=== PATIENT | female | born 1955 | race Caucasian/White ===

== ENCOUNTER → 2017-06-08 10:58 | Outpatient (CLI) | payer BC, SELFPAY ==
[2017-06-08 11:31] LABS: Hematocrit 42.5 % (37.0-47.0); Hemoglobin 13.4 g/dL (12.2-16.2)
== END ==
PROVIDERS: PCP Surgery; Visit Provider Surgery
DX: Z01.812 Encounter for preprocedural laboratory examination; Z12.11 Encounter for screening for malignant neoplasm of colon
CPT/HCPCS: 36415; 85014; 85018

== ENCOUNTER 2017-06-10 09:59 | Day surgery (SDC) | payer BC, SELFPAY ==
[2017-06-09 14:15] VITALS: BMI 31.6
[2017-06-10 10:28] VITALS: BP 124/64; PULSE 76; RESP 20; TEMP 36.5; O2SAT 95; BMI 31.6
[2017-06-10 10:57] LABS: POC Glucose,Bedside 110 mg/dL
--- NOTE | 2017-06-10 10:58 | HMH.ANESCL ---
[facility] [place] Anesthesia Checklist - Structural Data Admitted From: Home Planned Operative Procedure/s: colonoscopy Consent for Planned Operative Procedure(s) Verified: Yes Verified Documents: History and Physical - NPO Status Verified Time NPO: 06:00 - Additional verifications Anesthesia Reactions: No - Airway Assessment C-Spine Mobility Assessed: Yes TMJ Mobility Assessed: Yes Dentition: Poor Dentition - Neurological Assessment Level of Consciousness: Awake, Alert - Anesthesia Plan Anesthesia Risk discussed: Yes Anesthesia Plan: Verified ASA Class: III Anesthesia Type: MAC [facility] [place] Anesthesia HX I have reviewed the patient's past medical history: Yes Medical History: Reports:: Coronary Artery Disease, Diabetes Mellitus Type 2, Myocardial Infarction Denies:: Diabetes Mellitus Type 1, Seizures Other Surgeries: Yes: Hysterectomy-Total. No: Pacemaker
[2017-06-10 11:22] VITALS: O2SAT 96
--- NOTE | 2017-06-10 11:45 | SUR.OPER ---
ERBE CAUTERY USED; CAUTERY 00, COAG 25. GROUNDED TO RIGHT THIGH. SKIN INTACT UPON REMOVAL.
[2017-06-10 12:10] VITALS: BP 106/66; PULSE 66; RESP 16; TEMP 36.8; O2SAT 92
--- NOTE | 2017-06-10 12:12 | HMH.SCOPE ---
- Procedure: Date/Time of Procedure:: 06/10/17 12:12 Procedure Performed:: Colonoscopy with polypectomy Indications:: This is a 62-year-old female with intermittent bright red blood per rectum and constipation. She attributes her bleeding to hemorrhoids. Performing Provider:: Naveen Carlton MD Referring Provider:: Dr. Delacruz Sedation:: Monitored anesthesia care Procedure:: After informed consent was obtained, the patient was taken to the endoscopy suite. Monitored anesthesia care ensued after she was transferred to the left lateral decubitus position. Digital rectal exam revealed moderate hemorrhoidal cushions with no thrombosis or active bleeding. The colonoscope was placed in position. The entire colon was evaluated. Bowel preparation was poor with large volume irrigation and suctioning used to somewhat improve visualization. A complex lobulated polyp at [address] was excised by way snare polypectomy and cold biopsy forceps. This excision was accomplished at the time of colonoscope removal. A complex lobulated polyp of the transverse colon and an adjacent polyp were excised by way of snare and biopsy forceps. A 10 mm splenic flexure polyp was excised by way of cold biopsy and snare. No additional mucosal lesions are seen; however, visualization was somewhat limited secondary to poor bowel preparation. The colonoscope was carefully removed and the patient was transferred to recovery. Findings:: Poor bowel preparation Polyp (see specimens) Hemorrhoidal cushions with no thrombosis or active bleeding Specimens: Complex polyp at 40 cm Complex lobulated transverse colon polyp and adjacent polyp 7 mm splenic flexure polyp Impressions:: See findings Recommendations:: Repeat colonoscopy with extended bowel preparation in 1-2 years secondary to size/nature of polyps and poor bowel preparation. Complications:: No immediate Estimated blood obtained (mL): 1
[2017-06-10 12:20] VITALS: BP 104/67; PULSE 64; RESP 18; O2SAT 96
[2017-06-10 12:30] VITALS: BP 99/65; PULSE 74; RESP 18; O2SAT 93
[2017-06-10 12:40] VITALS: BP 103/68; PULSE 62; RESP 16; O2SAT 95
== END 2017-06-10 12:40 | disposition home or self-care (01) ==
LOC: OUTP 10:02
PROVIDERS: PCP Emergency Medicine; Visit Provider Surgery
PROC: 0DJD8ZZ Inspection of Lower Intestinal Tract, Via Natural or Artificial Opening Endoscopic (ICD-10-PCS; CPT 45385; principal; 2017-06-10 10:30)
DX: K62.5 Hemorrhage of anus and rectum (principal); K59.00 Constipation, unspecified; K63.5 Polyp of colon; E11.8 Type 2 diabetes mellitus with unspecified complications
CPT/HCPCS: 45385; 45380; 82962

== ENCOUNTER 2017-06-11 12:59 | Day surgery (SDC) | payer BC, SELFPAY ==
[2017-06-11 13:36] VITALS: BP 135/75; BP 135/77; PULSE 68; PULSE 72; RESP 18; RESP 20
[2017-06-11 13:44] VITALS: BP 112/60; PULSE 73; RESP 20; TEMP 36.4; O2SAT 93
[2017-06-11 13:51] LABS: POC Glucose,Bedside 279 mg/dL
--- NOTE | 2017-06-11 13:58 | HMH.PMPROC ---
- Procedure Date: 06/11/17 Time: 13:58 Anesthesiologist:: Austyn Garcia MD Complications:: None Pre-procedure Diagnosis:: Lumbar spondylosis, lumbar facet arthropathy Post-procedure Diagnosis:: Same Indications for Procedure:: This patient is a pleasant 62-year-old white female we are treating in our pain clinic for chronic low back pain secondary to lumbar spondylosis. Patient has had radiofrequency ablation of L3-L4, L4-L5, L5-S1 bilaterally back in August. Patient has done well with no pain since this procedure. Same pain has now started to return. She states standing for long periods of time aggravates her pain. Wishes to move forward with another radiofrequency ablation. She is now on blood thinners secondary to a [place]. We have gotten permission for her to come off of her blood thinners for this procedure from her community health advisor. We were only approved for radiofrequency ablation of 2 levels so we will do RFA of L4-5 and L5-S1 bilaterally today. Procedure Details:: The risks and benefits of this procedure were explained to the patient. Informed consent was obtained. Patient was taken to the procedure room and used in a prone position. Patient's back was cleaned and prepped with a chlorhexidine solution. The skin and subcutaneous tissues were anesthetized using lidocaine 1%. I placed 20-gauge RF needles into the facet joint/medial branches of L4-L5 and L5-S1 bilaterally. We underwent sensory stimulation. There is good sensory stimulation at 1 V. We then underwent motor stimulation. There is no motor stimulation at 2 V. After anesthetizing each level with lidocaine and Depo-Medrol up to 80 g for all 4 levels, we burned each level of L4-L5 and L5-S1 bilaterally for 60 seconds at 80?C. We burned both levels and both sides a total of 3 times, each 1 for 60 seconds at 80?C. The patient tolerated the procedure well with no complications. Plan and Disposition:: The patient tolerated the procedure well. We will follow up with her in 2 weeks to evaluate her symptoms.
--- NOTE | 2017-06-11 14:04 | P.PCN_ITS ---
- Procedure Date: 06/11/17 Time: 13:58 Anesthesiologist:: Austyn Garcia MD Complications:: None Pre-procedure Diagnosis:: Lumbar spondylosis, lumbar facet arthropathy Post-procedure Diagnosis:: Same Indications for Procedure:: This patient is a pleasant 62-year-old white female we are treating in our pain clinic for chronic low back pain secondary to lumbar spondylosis. Patient has had radiofrequency ablation of L3-L4, L4-L5, L5-S1 bilaterally back in August. Patient has done well with no pain since this procedure. Same pain has now started to return. She states standing for long periods of time aggravates her pain. Wishes to move forward with another radiofrequency ablation. She is now on blood thinners secondary to a [place]. 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 We were only approved for radiofrequency ablation of 2 levels so we will do RFA of L4-5 and L5-S1 bilaterally today. Procedure Details:: The risks and benefits of this procedure were explained to the patient. Informed consent was obtained. Patient was taken to the procedure room and used in a prone position. Patient's back was cleaned and prepped with a chlorhexidine solution. The skin and subcutaneous tissues were anesthetized using lidocaine 1%. I placed 20-gauge RF needles into the facet joint/medial branches of L4-L5 and L5-S1 bilaterally. We underwent sensory stimulation. There is good sensory stimulation at 1 V. We then underwent motor stimulation. There is no motor stimulation at 2 V. After anesthetizing each level with lidocaine and Depo-Medrol up to 80 g for all 4 levels, we burned each level of L4-L5 and L5-S1 bilaterally for 60 seconds at 80?C. We burned both levels and both sides a total of 3 times, each 1 for 60 seconds at 80?C. The patient tolerated the procedure well with no complications. Plan and Disposition:: The patient tolerated the procedure well. We will follow up with her in 2 weeks to evaluate her symptoms.
[2017-06-11 14:42] VITALS: BP 111/48; PULSE 70; RESP 18; O2SAT 93
== END 2017-06-11 14:44 | disposition home or self-care (01) ==
LOC: SC.PAINP 13:00
PROVIDERS: PCP Emergency Medicine; Visit Provider Anesthesiology
DX: M47.896 Other spondylosis, lumbar region (principal); M12.88 Other specific arthropathies, not elsewhere classified, other specified site
CPT/HCPCS: 64635; 64636; 82962; J1030

== ENCOUNTER → 2017-07-05 13:45 | Outpatient (POV) | payer BC, SELFPAY ==
[2017-07-05 13:54] VITALS: BP 125/77; PULSE 67; RESP 18; BMI 33.3
--- NOTE | 2017-07-05 14:01 | HMH.PAINSOAP ---
[facility] Pain Management SOAP Note Subjective:: This patient is a pleasant 62-year-old white female who we are treating for low back pain with degenerative disc disease of lumbar spine and lumbar spondylosis. Patient is status post radiofrequency ablation to the facet joints of L3-L4, L4-L5 and L5-S1 bilaterally. She is doing very well with no pain after this procedure. She has increased activity and no complaints at this time. Objective:: Alert and oriented ?3 in no acute distress. Patient does have a normal gait. Motor strength of the lower extremities is 5/5. There is no gross sensory deficit. Assessment:: Degenerative disc disease of lumbar spine with lumbar spondylosis and facet arthropathy. Plan:: I am very pleased with her progress. We will follow-up with her in 3 months to reevaluate her symptoms.
== END ==
PROVIDERS: PCP Emergency Medicine; Visit Provider Anesthesiology
DX: M47.9 Spondylosis, unspecified (principal)
CPT/HCPCS: 99212

== ENCOUNTER → 2017-08-18 15:12 | Outpatient (CLI) | payer BC, SELFPAY ==
[2017-08-18 15:43] LABS: Basophils % 0.2 % (0.1-2.0); Eosinophils # 0.2 K/mm3 (0.0-0.4); Eosinophils % 2.8 % (0.1-12.0); Hemoglobin 14.5 g/dL (12.2-16.2); Lymphocytes # 1.7 K/mm3 (0.7-4.5); Lymphocytes % 23.6 K/mm3 (10-50); Mean Corpuscular HGB Conc 31.6 g/dL (31.8-35.4); Mean Corpuscular Hemoglobin 31.5 pg (27.0-31.2); Mean Corpuscular Volume 99.9 fl (81-99); Mean Platelet Volume 7.4 fl (7.4-10.4); Monocytes # 0.2 K/mm3 (0.1-1.0); Monocytes % 3.2 % (1.7-9.3); Neutrophils # 5.1 K/mm3 (1.8-7.8); Neutrophils % 70.1 % (37.0-80.0); Platelet Count 249 K/mm3 (142-424); Red Blood Count 4.61 M/mm3 (4.20-5.40); Red Cell Distribution Width 15.3 % (11.5-17.5); White Blood Count 7.3 K/mm3 (4.8-10.8)
[2017-08-19 00:02] LABS: Anion Gap 12.5 mEq/L (5-15); Blood Urea Nitrogen 18 mg/dL (7-18); Carbon Dioxide 35 mmol/L (21.0-32.0); Chloride 95 mmol/L (98-107); Creatinine,Serum 0.92 mg/dL (0.55-1.02); Estimated Glomerular Filt Rate 62 ml/min (>60); GFR (African American) 75 ML/MIN (>60); Potassium 4.5 mmoL/L (3.5-5.1); Sodium 138 mmol/L (136-145)
[2017-08-19 00:03] LABS: Glucose 415 mg/dL (74-106)
== END ==
PROVIDERS: Visit Provider Orthopaedic Surgery
DX: G56.01 Carpal tunnel syndrome, right upper limb (principal); Z01.818 Encounter for other preprocedural examination
CPT/HCPCS: 36415; 80048; 85025

== ENCOUNTER 2017-08-25 09:08 | Day surgery (SDC) | payer BC, SELFPAY ==
[2017-08-24 10:34] VITALS: BMI 33.3
[2017-08-25 09:34] VITALS: BP 106/57; PULSE 64; RESP 18; TEMP 36.6; O2SAT 95
[2017-08-25 09:54] LABS: POC Glucose,Bedside 348 mg/dL (70-110)
--- NOTE | 2017-08-25 10:00 | HMH.ANESCL ---
[facility] Anesthesia Checklist - Patient Identification Patient Identification: Arm Band, Verbal (Name & ) - Structural Data Admitted From: Home Planned Operative Procedure/s: right CTR Consent for Planned Operative Procedure(s) Verified: Yes Verified Documents: Surgical Consent - NPO Status Verified Time NPO: 00:00 - Chart Verification Results Verified: CBC, BMP - Additional verifications Patient : No Anesthesia Reactions: No Hx Blood Transfusions: No Blood Transfusion Reaction: No Cephalosporin Allergy: No Previous Colonoscopy: No - Cardiovascular Assessment Heart Sounds: S1 & S2 Pulse Strength: Baseline Pulse Rhythm: Regular Peripheral Edema: No - Airway Assessment C-Spine Mobility Assessed: Yes TMJ Mobility Assessed: Yes Dentition: Good Dentition - Neurological Assessment Level of Consciousness: Awake, Alert, Appropriate - Anesthesia Plan Anesthesia Risk discussed: Yes Anesthesia Plan: Verified ASA Class: III Anesthesia Type: MAC [facility] Anesthesia HX Medical History: Reports:: Coronary Artery Disease, Diabetes Mellitus Type 2, Hyperlipidemia, Myocardial Infarction Denies:: Cancer, Diabetes Mellitus Type 1, Internal Pacemaker, MRSA, Seizures Other Medical History: Reports: Arthritis, Hormone Therapy, Hypothyroidism, Sinus Problems. Denies: Blood Transfusion Reaction Laterality Cases: Left: Carpal Tunnel Release, Bilateral: Tonsillectomy Other Surgeries: Yes: Appendectomy, Cardiac Catheterization, Colonoscopy, Coronary Stent, Hysterectomy-Total. No: Pacemaker Amputation: No Fractures: No *Family Hx:: Diabetes, Heart Attack, Stroke
[2017-08-25 11:55] VITALS: BP 97/64; PULSE 69; RESP 18; TEMP 36.5; O2SAT 96
[2017-08-25 12:05] VITALS: BP 109/66; PULSE 66; RESP 18; O2SAT 93
[2017-08-25 12:20] VITALS: BP 101/65; PULSE 66; RESP 18; O2SAT 93
[2017-08-25 12:35] VITALS: BP 103/68; PULSE 69; RESP 18; O2SAT 96
[2017-08-25 12:45] VITALS: BP 105/63; PULSE 70; RESP 18; TEMP 36.6; O2SAT 96
--- NOTE | 2017-08-25 13:10 | HMH.OPNOTE ---
Date of procedure: 08/25/17 Pre-op Diagnosis:: Right carpal tunnel syndrome Post-op Diagnosis:: Same Procedure performed:: Right carpal tunnel release Surgeon:: Catracho Estrada MD ADMINISTRATION PHYSICIAN:: Irena Harman Anesthesia: regional Estimated blood loss (mL): 2 Operative findings:: Intraoperative findings showed the median nerve to be dusky and hyperemic. There was a slight hourglass appearance secondary to pressure of the transverse carpal ligament. Prominent synovitis was present. No evidence of lesions such as ganglion or other space-occupying lesions Operative note:: The patient was taken to the operating room and the above anesthetic administered. The right arm was prepped and draped in the usual sterile fashion. After exsanguination, the tourniquet was inflated to 250 torr and a [place] block anesthetic administered. Please see nurses record for total tourniquet time. Villalpando's landmarks were utilized and an incision made parallel to the thenar crease with a 15 blade. Blunt tissue dissection through the subcutaneous tissue down to the palmar fascia was performed. The palmar fascia was incised with a 69 [place] blade to reveal the transverse carpal ligament. Some fibers the palmaris brevis were swept aside to adequate expose the transverse carpal ligament and the transverse carpal ligament was then incised with a 69 [place] blade just enough to expose the median nerve. We then protected the median nerve with a [place] elevator and extended the incision on the ulnar aspect of the nerve using the [place] blade. We then completed the incision proximally using a pair of tenotomy scissors ensuring that the transverse carpal ligament was NOT contiguous with the antebrachial fascia. A complete release proximally was documented by easily obtained side to side movement of the proximal carpal tunnel segments. Attention was then turned distally. Similarly, we incised the distal aspect of the transverse carpal ligament using the tenotomy scissors. Fat demarcating the end of the carpal tunnel was identified and we ensured that the motor branch was not endangered by any anatomic variation. We also then ensured that we had free side to side movement of the entire transverse carpal tunnel ligament segments. We then inspected the nerve. Slight hyperemic changes and slight indentation from pressure of the transverse carpal ligament was identified. There was duskiness an area of hyperemia for several millimeters as well. There were no space-occupying lesions within the transverse carpal canal. We then irrigated the incision with a solution of Ancef, 1 g, and closed with a running 4-0 nylon suture. Dressings were applied the tourniquet deflated the patient transported to the recovery room in satisfactory condition. Condition: stable Disposition: PACU Complications:: none
== END 2017-08-25 12:45 | disposition home or self-care (01) ==
LOC: OR 09:09
PROVIDERS: PCP Emergency Medicine; Visit Provider Orthopaedic Surgery
PROC: (CPT 64721; principal; 2017-08-25 11:00)
DX: G56.01 Carpal tunnel syndrome, right upper limb (principal)
CPT/HCPCS: 64721; 82962; 96372; 96374

== ENCOUNTER → 2017-09-20 13:55 | Outpatient (POV) | payer BC, SELFPAY ==
[2017-09-20 14:08] VITALS: BP 96/38; PULSE 64; BMI 22.6
--- NOTE | 2017-09-20 14:22 | P.CONS_ITS ---
[facility] Pain Management SOAP Note Subjective:: Patient is a very pleasant 62-year-old white female who presents today for follow-up. Patient has undergone radiofrequency ablation of L3-L4 L4-L5 L5-S1 bilaterally. She is doing extremely well with no pain. Patient rates her pain a 0 out of 10 today. She is managed on Lyrica 150 mg 1 p.o. twice daily. Patient's MAE [id number] reviewed and appropriate. Patient states she has been doing so well and been more functional. Patient will follow up with us every 6 months. ROS General: no recent weight change, no fever, no sleep disturbances Respiratory: no cough, no shortness of air, no recurring pulmonary infections Cardiovascular/Peripheral Vascular: No chest pain, No palpitations, no edema, no shortness of breath. Gastrointestinal: no incontinence, normal bowel movements reported Genitourinary: no incontinence Musculoskeletal: Back pain Psychiatric: normal mood/ affect Neurological: [denies weakness in extremities], [denies balance issues] Objective:: Physical Exam General: Alert and oriented x3, no acute distress, pleasant and cooperative, [ on room air] Lungs: Resps E/U, Symmetrical chest expansion, Eyes: PERRL Musculoskeletal: Flexion and extension of lumbar spine somewhat guarded secondary to pain, deep tendon reflexes normal, strength in upper and lower extremities [5/5], slightly antalgic gait noted Neurological: speech clear, locomotive inspector equal, no gross sensory deficits Assessment:: Degenerative disc disease of the lumbar spine with lumbar spondylosis and facet arthropathy Plan:: We will follow-up with this patient in 6 months and reevaluate her symptoms at that time. We will call in 3 months with the Lyrica 150 mg 1 p.o. twice daily. Patient can call for refills after this. Patient has been instructed to call the office in the meantime if she needs anything. Patient's Mae reviewed and appropriate. Dr. Garcia is reviewed this chart and agrees with this plan of care. This note was dictated using voice recognition software and may contain errors or omissions
== END ==
PROVIDERS: PCP Emergency Medicine; Visit Provider Clinical Nurse Specialist Family Health
DX: M47.816 Spondylosis without myelopathy or radiculopathy, lumbar region (principal)
CPT/HCPCS: 99212

== ENCOUNTER → 2017-10-12 15:25 | Outpatient (REF) | payer BC, SELFPAY ==
[2017-10-12 18:21] LABS: Basophils % 0.2 % (0.1-2.0); Eosinophils # 0.2 K/mm3 (0.0-0.4); Eosinophils % 3.1 % (0.1-12.0); Hematocrit 39.3 % (37.0-47.0); Hemoglobin 12.9 g/dL (12.2-16.2); Lymphocytes # 1.9 K/mm3 (0.7-4.5); Lymphocytes % 25.4 K/mm3 (10-50); Mean Corpuscular HGB Conc 32.7 g/dL (31.8-35.4); Mean Corpuscular Hemoglobin 32.3 pg (27.0-31.2); Mean Corpuscular Volume 98.7 fl (81-99); Mean Platelet Volume 7.9 fl (7.4-10.4); Monocytes # 0.3 K/mm3 (0.1-1.0); Monocytes % 4.6 % (1.7-9.3); Neutrophils % 66.7 % (37.0-80.0); Platelet Count 234 K/mm3 (142-424); Red Blood Count 3.98 M/mm3 (4.20-5.40); Red Cell Distribution Width 14.2 % (11.5-17.5); White Blood Count 7.6 K/mm3 (4.8-10.8)
[2017-10-12 19:25] LABS: Hemoglobin A1C 11.4 % (0.0-7.0)
[2017-10-12 20:23] LABS: Alanine Aminotransferase 27 U/L (12-78); Albumin Level 3.3 gm/dL (3.4-5.0); Albumin/Globulin Ratio 0.9 (1.1-1.8); Alkaline Phosphatase 81 U/L (46-116); Anion Gap 12.5 mEq/L (5-15); Aspartate Amino Transferase 25 U/L (15-37); Bilirubin,Total 0.3 mg/dL (0.2-1.0); Blood Urea Nitrogen 12 mg/dL (7-18); Calcium 8.9 mg/dL (8.5-10.1); Carbon Dioxide 30 mmol/L (21.0-32.0); Chloride 106 mmol/L (98-107); Chol/HDL Ratio 3.4 (1-3.5); Cholesterol 139 mg/dL (140-200); Creatinine,Serum 0.77 mg/dL (0.55-1.02); Estimated Glomerular Filt Rate 76 ml/min (>60); Free T4 (Free Thyroxine) 1.14 ng/dl (0.76-1.46); GFR (African American) 92 ML/MIN (>60); Globulin 3.5 gm/dl (1.3-3.2); Glucose 315 mg/dL (74-106); HDL Cholesterol 41 mg/dL (29-89); LDL Cholesterol 46 mg/dL (0-130); Potassium 4.5 mmoL/L (3.5-5.1); Sodium 144 mmol/L (136-145); Thyroid Stimulating Hormone 2.79 uIU/ml (0.358-3.740); Total Protein,Serum 6.8 gm/dL (6.4-8.2); Triglycerides 261 mg/dL (30-200); VLDL Cholesterol 52 mg/dL (0-40)
[2017-10-14 06:22] LABS: Vitamin D 25 Hydroxy 19.8 ng/mL (30.0-100.0)
== END ==
LOC: LAB 15:25
PROVIDERS: Visit Provider Emergency Medicine
DX: E11.9 Type 2 diabetes mellitus without complications (principal)
CPT/HCPCS: 80053; 80061; 82652; 83036; 84439; 84443; 85025

== ENCOUNTER → 2017-10-27 10:06 | Outpatient (CLI) | payer BC, SELFPAY ==
--- NOTE | 2017-10-27 10:08 | XR_ITS ---
XR shoulder RT min 2V HISTORY: ITS.REASON: Right shoulder pain ORDERING PHYSICIAN: Catracho Estrada MD PATIENT AGE: 62 years Comparison: None FINDINGS: There are mild osteoarthritic changes of the glenohumeral joint and acromioclavicular joint.. There is subacromial stenosis. Calcification is noted superior to the humeral head consistent with calcific tendinitis. No fracture or dislocation. No lytic or blastic change. 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
== END ==
PROVIDERS: PCP Emergency Medicine; Visit Provider Orthopaedic Surgery
DX: M25.511 Pain in right shoulder (principal)
CPT/HCPCS: 73030

== ENCOUNTER 2017-12-07 13:00 | Outpatient (RCR) | payer BC, SELFPAY ==
--- NOTE | 2017-10-28 15:47 | HMH.OTOPEV ---
OT Inpatient Evaluation Rehab OT Outpatient Eval Start: 10/28/17 15:36 Freq: Status: Active Protocol: Document 10/28/17 15:36 RMSRIHALNell (Rec: 10/28/17 15:47 [id number] Electronically Signed By Boom Beth OT 10/28/17 15:36 Outpatient Therapy Subjective History Subjective History Pt is a 62 year old female who reports to therapy for initial evaluation to right shoulder. Pt reports her shoulder began hurting her in July, and has continued. Pt does not recall a specific injury causing her pain. Pt has had an injection in the shoulder around August 22. She explained the shot helped for a while, but her pain is slowly beginning again. Pt does demonstrate with slight decreased AROM and strength at right shoulder. 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 Pt will continue to be seen twice a week to address these deficits. Chief Complaint Pain Stiff Symptom Type Ache Throb Sharp Stabbing Shooting Symptoms Relieved By Nothing Symptoms Aggravated By Physical Activity Lifting Prior Functional Limitations None Current Functional Limitations Reaching Lifting Housework Dressing Desk Work/Reading Driving Sleeping Recreation Activity Symptom Description Intermittent Activity Dependent Level of pain today (0-10) 2 Pain scale - at its best (0-10) 0 Pain scale - at its worst (0-10) 10 Shoulder/Elbow Eval Shoulder Objective Measurements Shoulder ROM Right Shoulder Abduction Active Range of 130 degrees Motion (degrees) Shoulder Flexion Active Range of Motion 118 degrees (degrees) Query
== END 2017-12-07 13:01 | disposition home or self-care (01) ==
LOC: OT 13:00
PROVIDERS: PCP Emergency Medicine; Visit Provider Orthopaedic Surgery
DX: M25.511 Pain in right shoulder (principal); M75.31 Calcific tendinitis of right shoulder
CPT/HCPCS: 97014; 97033; 97110; 97166; G0283

== ENCOUNTER → 2017-12-24 12:49 | Outpatient (CLI) | payer BC, SELFPAY ==
--- NOTE | 2017-12-24 12:51 | MR_ITS ---
MR shoulder RT wo con Ordering Physician: Catracho Estrada MD Patient Age: 62 years: Female HISTORY: ITS.REASON: Rotator cuff dysfunction MRI of the right shoulder. Right shoulder pain since August limited range of motion no known injury. TECHNIQUE: Multiplanar multisequence imaging on 1.5 T MR. COMPARISON :Plain films right shoulder 10/27/2017 FINDINGS Infraspinatus tendon: Small rotator cuff tear is seen at the infraspinatus insertion. Increased signal anterior most evident at the undersurface and interstitial portion of this tendon with a small full-thickness component. No significant tendon retraction. There is some associated tendinopathy throughout the infraspinatus tendon. Small amount of fluid at subdeltoid subacromial bursa associated.. Also note insertion erosions at the posterior humeral head at infraspinatus insertion. Supraspinatus tendon: appears to remain intact. With suggestion mild tendinopathy most notable at its posterior and anterior margin.. No significant supraspinatus tear no retraction evident Subscapularis tendon is intact. Unremarkable. The biceps tendon appears intact. It is normal caliber throughout with only some upper normal signal disappeared bicipital groove which likely is magic angle artifact doubt tendinopathy. There seems to be some field distortion of possible micrometal artifact anterior to the supraspinatus tendon and anterior interval. [place] been a previous procedure or injection of the shoulder Glenohumeral joint. Osseous glenoid intact. Posterior labrum are intact. Anterior labrum on most likely intact although could be slightly blunted and possibly mildly slightly degenerated.. AC joint. Mild arthropathy. . The acromion demonstrates slight downward sloping on the coronal views with the subacromial space measuring 5.5-6 mm just beneath the tip of acromion. Suggesting mild subacromial stenosis at this point.. IMPRESSION 1. Rotator cuff tear involving infraspinatus insertion. This is a relatively small tear mainly involving the undersurface & interstitial portion of the infraspinatus tendon with only a small full-thickness component. Infraspinatus tendinopathy about involved area Scant associated fluid at subdeltoid subacromial bursa 2. Mild Supraspinatus tendinopathy 3. Other minor comments in text
== END ==
PROVIDERS: PCP Emergency Medicine; Visit Provider Orthopaedic Surgery
DX: M67.911 Unspecified disorder of synovium and tendon, right shoulder (principal); M65.20 Calcific tendinitis, unspecified site
CPT/HCPCS: 73221

== ENCOUNTER → 2018-01-31 13:28 | Outpatient (CLI) | payer BC, SELFPAY ==
--- NOTE | 2018-01-31 13:30 | US_ITS ---
US Arterial Ankle Brachial Ind History: Claudication, leg pain, diabetes ITS.REASON: skin changes ORDERING PHYSICIAN: Kiki Baker DPM PATIENT AGE: 62 years TECHNIQUE: Segmental pressures obtained of both right and left leg. These are compared to brachial blood pressure to yield index at each level sampled including summary GEOVANNA. The data sheets from the procedure are available in PACS FINDINGS Rest study only performed today No prior studies available for comparison. Blood pressures reported are in millimeters mercury. RIGHT LEG GEOVANNA = 1.2. RIGHT LEG TBI=.8 Brachial BP: 134 Thigh BP: 148 Calf BP: 184 Ankle PT: 164 Ankle DP : 148 Digit =109 LEFT LEG GEOVANNA = 1.1 LEFT LEG TBI= .6 Brachial BPD: 136 Thigh BP: 142 Calf BP: 168 Ankle PT:154 Ankle DP: 145 Digit = 81 Pulses and waveforms: Normal IMPRESSION: The ABIs as reported above are within normal limits. Waveforms and pulses are also unremarkable. The left TBI slightly low at 0.6 and may indicate small vessel disease
== END ==
PROVIDERS: PCP Emergency Medicine; Visit Provider Podiatrist
DX: R23.9 Unspecified skin changes (principal)
CPT/HCPCS: 93922

== ENCOUNTER → 2018-03-07 10:07 | Outpatient (POV) | payer BC, SELFPAY ==
--- NOTE | 2018-03-07 10:37 | HMH.PAINSOAP ---
[facility] Pain Management SOAP Note Subjective:: Patient is a pleasant 62-year-old white female who presents today for follow-up. Patient has had a RFA of L3-L4 L4-L5 L5-S1 bilaterally. Patient states that she is having no back pain. However she is having some myofascial pain in her left thoracic paraspinous. Patient rates that pain a 6 out of 10 today. Patient's not been on any muscle relaxers. Patient is interested in injective therapy given the efficacy of it for her low back ROS General: no recent weight change, no fever, no sleep disturbances Respiratory: no cough, no shortness of air, no recurring pulmonary infections Cardiovascular/Peripheral Vascular: No chest pain, No palpitations, no edema, no shortness of breath. Gastrointestinal: no incontinence, normal bowel movements reported Genitourinary: no incontinence Musculoskeletal: Myofascial pain Psychiatric: normal mood/ affect Neurological: [denies weakness in extremities], [denies balance issues] Objective:: Physical Exam General: Alert and oriented x3, no acute distress, pleasant and cooperative, [on room air] Lungs: Resps E/U, Symmetrical chest expansion, Eyes: PERRL Musculoskeletal: Flexion and extension of thoracic spine somewhat guarded secondary to pain, deep tendon reflexes normal, strength in upper and lower extremities [5/5], slightly antalgic gait noted, trigger points palpated thoracic paraspinous Neurological: speech clear, billing auditor equal, no gross sensory deficits Assessment:: Myofascial pain syndrome Plan:: We will call and Zanaflex 2 mg dispensing 10 pills in case the patient needs him. We will also schedule her for trigger point injections of the thoracic paraspinous on the left side. This note was dictated using voice recognition software and may contain errors or omissions
--- NOTE | 2018-03-07 10:40 | P.CONS_ITS ---
[facility] Pain Management SOAP Note Subjective:: Patient is a pleasant 62-year-old white female who presents today for follow-up. Patient has had a RFA of L3-L4 L4-L5 L5-S1 bilaterally. Patient states that she is having no back pain. However she is having some myofascial pain in her left thoracic paraspinous. Patient rates that pain a 6 out of 10 today. Patient's not been on any muscle relaxers. Patient is interested in injective therapy given the efficacy of it for her low back ROS General: no recent weight change, no fever, no sleep disturbances Respiratory: no cough, no shortness of air, no recurring pulmonary infections Cardiovascular/Peripheral Vascular: No chest pain, No palpitations, no edema, no shortness of breath. Gastrointestinal: no incontinence, normal bowel movements reported Genitourinary: no incontinence Musculoskeletal: Myofascial pain Psychiatric: normal mood/ affect Neurological: [denies weakness in extremities], [denies balance issues] Objective:: Physical Exam General: Alert and oriented x3, no acute distress, pleasant and cooperative, [on room air] Lungs: Resps E/U, Symmetrical chest expansion, Eyes: PERRL Musculoskeletal: Flexion and extension of thoracic spine somewhat guarded secondary to pain, deep tendon reflexes normal, strength in upper and lower extremities [5/5], slightly antalgic gait noted, trigger points palpated thoracic paraspinous Neurological: speech clear, accredited legal secretary equal, no gross sensory deficits Assessment:: Myofascial pain syndrome Plan:: We will call and Zanaflex 2 mg dispensing 10 pills in case the patient needs him. We will also schedule her for trigger point injections of the thoracic paraspinous on the left side. This note was dictated using voice recognition software and may contain errors or omissions
[2018-03-07 12:21] VITALS: BP 130/85; PULSE 84; RESP 18; O2SAT 98; BMI 31.6
== END ==
PROVIDERS: PCP Emergency Medicine; Visit Provider Clinical Nurse Specialist Family Health
DX: M79.18 Myalgia, other site (principal)
CPT/HCPCS: 99213

== ENCOUNTER 2018-03-17 19:00 | Observation (INO) ==
[2018-03-17 19:16] LABS: Basophils % 0.1 % (0.1-2.0); Eosinophils % 0.3 % (0.1-12.0); Hematocrit 44.6 % (37.0-47.0); Hemoglobin 13.9 g/dL (12.2-16.2); Lymphocytes # 0.7 K/mm3 (0.7-4.5); Lymphocytes % 9.5 K/mm3 (10-50); Mean Corpuscular HGB Conc 31.1 g/dL (31.8-35.4); Mean Corpuscular Hemoglobin 30.4 pg (27.0-31.2); Mean Corpuscular Volume 97.8 fl (81-99); Monocytes # 0.1 K/mm3 (0.1-1.0); Monocytes % 1.8 % (1.7-9.3); Neutrophils # 6.6 K/mm3 (1.8-7.8); Neutrophils % 88.3 % (37.0-80.0); Platelet Count 235 K/mm3 (142-424); Red Blood Count 4.56 M/mm3 (4.20-5.40); Red Cell Distribution Width 14.9 % (11.5-17.5); White Blood Count 7.4 K/mm3 (4.8-10.8)
--- NOTE | 2018-03-17 19:17 | Emergency Department Note ---
ED Disposition Clinical Impression: Hyperglycemia Chest pain Qualifiers: Chest pain type: other chest pain Qualified Code(s): R07.89 - Other chest pain CAD (coronary artery disease) Qualifiers: Coronary Disease-Associated Artery/Lesion type: unspecified vessel or lesion type [place] vs. transplanted heart: [place] heart Associated angina: with unspecified angina Qualified Code(s): I25.119 - Atherosclerotic heart disease of [place] coronary artery with unspecified angina pectoris Disposition: Admitted as Observation Condition on Discharge: Fair (stable) - Critical Care Critical Care Time: Yes Attestation: On 03/17/18, the high probability of a clinically significant, sudden or life threatening deterioration of the following system(s) required my full and direct attention, intervention and personal management. The time I documented below is in addition to time spent performing reported procedures but includes the fol lowing listed in this critical care notation. Total Critical Care Time: 45 Vital system(s) involved:: Circulatory Failure, Respiratory Failure, Renal Failure, Shock (Hemorrhage) My critical care processes included: Assessment & monitoring of V/S, Initial and Re-exams, Data Review/Interpretation, Coordinating Care, Medication Orders and management, Documentation Medical Decision Making - Medical Records Medical records reviewed: Yes: I reviewed the patient's medical records. - Jabari Inquiry Pt receiving controlled substance: No Jabari was queried for this patient: No Vital Signs: 03/17/18 19:01 03/17/18 19:14 03/17/18 20:00 Temperature 98.1 F Temperature Source Oral Pulse Rate Pulse Rate [Left Radial] 95 H 92 H 84 Respiratory Rate 12 18 18 Blood Pressure Blood Pressure [Right Arm] 156/79 H 125/57 L 113/64 Blood Pressure Mean [Right Arm] 104 79 80 Blood Pressure Source Blood Pressure Source [Right Arm] Automatic Cuff Automatic Cuff Blood Pressure Position Blood Pressure Position [Right Arm] Sitting Supine 02 Sat by Pulse Oximetry 96 93 L 94 L Oxygen Delivery Method Room Air Room Air Nasal Cannula Oxygen Flow Rate (LPM) 2 03/17/18 20:05 03/17/18 20:07 03/17/18 20:24 Temperature Temperature Source Pulse Rate Pulse Rate [Left Radial] 84 84 86 Respiratory Rate 15 18 16 Blood Pressure Blood Pressure [Right Arm] 113/64 110/50 L 109/54 L Blood Pressure Mean [Right Arm] 80 70 72 Blood Pressure Source Blood Pressure Source [Right Arm] Automatic Cuff Automatic Cuff Blood Pressure Position Blood Pressure Position [Right Arm] Supine Supine 02 Sat by Pulse Oximetry 95 95 94 L Oxygen Delivery Method Nasal Cannula Nasal Cannula Nasal Cannula Oxygen Flow Rate (LPM) 2 2 2 03/17/18 20:30 03/17/18 20:55 Temperature 97.7 F Temperature Source Oral Pulse Rate 79 Pulse Rate [Left Radial] 82 Respiratory Rate 18 18 Blood Pressure 114/53 L Blood Pressure [Right Arm] 113/43 L Blood Pressure Mean [Right Arm] 66 Blood Pressure Source Automatic Cuff Blood Pressure Source [Right Arm] Automatic Cuff Blood Pressure Position Sitting Blood Pressure Position [Right Arm] Supine 02 Sat by Pulse Oximetry 94 L Oxygen Delivery Method Nasal Cannula Nasal Cannula Oxygen Flow Rate (LPM) 2 2 - Lab Data Lab Results 03/17/18 19:03: WBC 7.4, RBC 4.56, Hgb 13.9, Hct 44.6, MCV 97.8, MCH 30.4, MCHC 31.1 L, RDW 14.9, Plt Count 235, MPV 7.0 L, Neut % (Auto) 88.3 H, Lymph % (Auto) 9.5 L, [place] % (Auto) 1.8, Eos % (Auto) 0.3, Baso % (Auto) 0.1, Neut # (Auto) 6.6, Lymph # (Auto) 0.7, [place] # (Auto) 0.1, Eos # (Auto) 0.0, Baso # (Auto) 0.0, Total Counted 100, Neutrophils % (Manual) 89 H, Lymphocytes % (Manual) 7 L, Monocytes % (Manual) 4, Platelet Estimate Normal, RBC Morphology Normal 03/17/18 19:03: Sodium 133 L, Potassium 4.3, Chloride 97 L, Carbon Dioxide 26, Anion Gap 14.3, BUN 15, Creatinine 1.22 H, Estimated Creat Clear 68, Estimated GFR 45 L, Est GFR ( Amer) 54 L, Glucose 577 H*, Calcium 8.8, Troponin I < 0.02 Result diagrams: 03/19/18 05:40 03/19/18 05:40 Orders (Tests/Meds): ED MEDICATIONS Generic Name Dose Route Start Last Admin Trade Name Freq PRN Reason Stop Dose Admin Sodium Chloride 10 ml 03/22/18 12:43 Saline Flush 10ml Syringe IV 04/21/18 12:42 NEEDED PRN Maintain IV Site Discontinued Medications Generic Name Dose Route Start Last Admin Trade Name [place] PRN Reason Stop Dose Admin Acetaminophen 650 mg 03/17/18 20:32 Acetaminophen 325mg Tab PO 04/16/18 20:31 Q4HP PRN As Needed for Fever or Pain Acetaminophen 650 mg 03/18/18 14:10 Acetaminophen 325mg Tab PO 04/17/18 14:09 Q4HP PRN Mild to Moderate Pain Hydrocodone Bitart/Acetaminophen 1 tab 03/18/18 14:10 [place] 5/325mg Tablet PO 04/17/18 14:09 Q4HP PRN Mild Pain Aspirin 243 mg 03/17/18 19:06 03/17/18 19:07 Aspirin 81mg Chewable Tablet PO 03/17/18 19:07 243 mg ONCE ONE Administration Aspirin 81 mg 03/17/18 20:32 03/19/18 08:39 Aspirin 81mg Enteric Coated Tablet PO 04/16/18 20:31 81 mg DAILY FERNANDO Administration Atorvastatin Calcium 40 mg 03/18/18 21:00 03/18/18 20:48 Lipitor 40mg Tablet PO 04/17/18 20:59 40 mg HS FERNANDO Administration Bupropion HCl 150 mg 03/18/18 09:00 03/19/18 08:39 Wellbutrin Sr 150mg Tablet PO 04/17/18 08:59 150 mg DAILY FERNANDO Administration Clopidogrel Bisulfate 75 mg 03/18/18 09:00 03/19/18 08:39 Plavix 75mg Tablet PO 04/17/18 08:59 75 mg DAILY FERNANDO Administration Diphenhydramine HCl 50 mg 03/18/18 08:20 03/18/18 11:24 Benadryl 50mg/1ml Vial IV 03/18/18 08:21 50 mg ONCE ONE Administration Diphenhydramine HCl 50 mg 03/22/18 12:43 Benadryl 50mg/1ml Vial IV 03/22/18 12:44 ONCE ONE Estradiol 1 mg 03/18/18 09:00 03/19/18 08:40 Estrace 1mg Tablet PO 04/17/18 08:59 1 mg DAILY FERNANDO Administration Fenofibrate 54 mg 03/18/18 09:00 03/19/18 08:40 Tricor 54mg Tablet PO 04/17/18 08:59 54 mg DAILY FERNANDO Administration Fentanyl Citrate 25 mcg 03/18/18 07:32 Fentanyl 250mcg/5ml Vial IV 03/19/18 07:32 Q3MINP PRN Moderate to Severe Pain Fentanyl Citrate 50 mcg 03/18/18 07:32 Fentanyl 250mcg/5ml Vial IV 03/19/18 07:32 Q3MINP PRN Moderate to Severe Pain Fentanyl Citrate 50 mcg 03/18/18 08:20 03/18/18 12:34 Fentanyl 100mcg/2ml Vial IV 03/19/18 08:21 25 mcg Q3MINP PRN Administration Moderate to Severe Pain Fentanyl Citrate 25 mcg 03/18/18 08:20 Fentanyl 250mcg/5ml Vial IV 03/19/18 08:20 Q3MINP PRN Moderate to Severe Pain Fentanyl Citrate 50 mcg 03/18/18 08:20 Fentanyl 250mcg/5ml Vial IV 03/19/18 08:20 Q3MINP PRN Moderate to Severe Pain Fentanyl Citrate 25 mcg 03/18/18 08:20 Fentanyl 100mcg/2ml Vial IV 03/19/18 08:21 Q3MINP PRN Moderate to Severe Pain Fentanyl Citrate 50 mcg 03/22/18 12:43 Fentanyl 100mcg/2ml Vial IV 03/23/18 12:43 Q3MINP PRN Moderate to Severe Pain Fentanyl Citrate 25 mcg 03/22/18 12:43 Fentanyl 250mcg/5ml Vial IV 03/23/18 12:43 Q3MINP PRN Moderate to Severe Pain Fentanyl Citrate 50 mcg 03/22/18 12:43 Fentanyl 250mcg/5ml Vial IV 03/23/18 12:43 Q3MINP PRN Moderate to Severe Pain Fentanyl Citrate 25 mcg 03/22/18 12:43 Fentanyl 100mcg/2ml Vial IV 03/23/18 12:43 Q3MINP PRN Moderate to Severe Pain Flumazenil 0.2 mg 03/18/18 07:32 Romazicon 0.1mg/Ml 5ml Vial IV 03/18/18 23:00 NEEDED PRN Sedation Flumazenil 0.2 mg 03/18/18 08:20 Romazicon 0.1mg/Ml 5ml Vial IV 03/18/18 23:00 NEEDED PRN Sedation Flumazenil 0.2 mg 03/22/18 12:43 Romazicon 0.1mg/Ml 5ml Vial IV 03/22/18 23:00 NEEDED PRN Sedation Furosemide 40 mg 03/18/18 09:00 03/18/18 08:27 Lasix 40mg Tablet PO 04/17/18 08:59 Not Given DAILY FERNANDO Furosemide 80 mg 03/18/18 16:00 03/19/18 08:45 Lasix 80mg Tablet PO 04/17/18 15:59 80 mg BIDL FERNANDO Administration Heparin Sodium (Porcine) 10,000 unit 03/18/18 08:20 03/18/18 11:57 Heparin 1,000 Units/Ml 10ml Vial (Culture Media Laboratory Assistant) IV 03/18/18 12:20 7,000 unit NEEDED PRN Administration Emergency Box Flame Annealing Machine Setter Heparin Sodium (Porcine) 10,000 unit 03/22/18 12:43 Heparin 1,000 Units/Ml 10ml Vial (Culture Media Laboratory Assistant) IV 03/22/18 16:43 NEEDED PRN Emergency Box Flame Annealing Machine Setter Heparin Sodium/Sodium Chloride 3,000 unit 03/18/18 08:20 03/18/18 11:25 Heparin 1000 Units/500ml Ns (Culture Media Laboratory Assistant) IV 03/18/18 08:21 3,000 unit ONCE ONE Administration Heparin Sodium/Sodium Chloride 3,000 unit 03/22/18 12:43 Heparin 1000 Units/500ml Ns (Culture Media Laboratory Assistant) IV 03/22/18 12:44 ONCE ONE Sodium Chloride 1,000 mls @ 50 mls/hr 03/17/18 20:32 03/19/18 15:33 Sod Chlor 0.9% 1000ml Bag IV 04/16/18 20:31 Not Given .Q20H FERNANDO Sodium Chloride 1,000 mls @ 25 mls/hr 03/18/18 08:30 03/18/18 11:26 Sod Chlor 0.9% 1000ml Bag IV 03/19/18 08:20 25 mls/hr .Q25H FERNANDO Administration Sodium Chloride 1,000 mls @ 25 mls/hr 03/22/18 12:45 Sod Chlor 0.9% 1000ml Bag IV 03/23/18 12:43 .Q25H FERNANDO Influenza Virus Vaccine Quadrival 60 mcg 03/19/18 15:00 03/19/18 15:02 Fluzone Quad [id number] 0.5ml Syringe IM 03/19/18 15:01 60 mcg .ONCE ONE Administration Insulin Human Lispro 0 unit 03/17/18 21:00 03/19/18 11:53 Humalog 100 Units/Ml 3ml Vial (Ssi) SQ 04/16/18 20:59 6 unit ACHS FERNANDO Administration Protocol Insulin Human Regular 10 unit 03/17/18 19:40 03/17/18 19:43 Humulin R Insulin 100 Units/Ml 10ml Vial IVP 03/17/18 19:41 10 unit ONCE ONE Administration Iopamidol 240 ml 03/18/18 14:55 03/18/18 14:56 [id number]; 100ml Vial IV 03/18/18 14:56 240 ml ONCE ONE Administration Protocol Irbesartan 37.5 mg 03/18/18 09:00 03/19/18 08:40 Avapro 75mg Tablet PO 04/17/18 08:59 37.5 mg DAILY FERNANDO Administration Levothyroxine Sodium 150 mcg 03/18/18 09:00 03/19/18 08:40 Synthroid 150mcg (0.15mg) Tablet PO 04/17/18 08:59 150 mcg DAILY FERNANDO Administration Lidocaine HCl 20 ml 03/18/18 08:20 03/18/18 11:24 Lidocaine 1% 20ml Mdv IJ 03/18/18 08:21 10 ml ONCE ONE Administration Lidocaine HCl 20 ml 03/22/18 12:43 Lidocaine 1% 20ml Mdv IJ 03/22/18 12:44 ONCE ONE Metformin HCl 1,000 mg 03/18/18 08:15 03/18/18 08:27 Glucophage 500mg Tablet PO 04/17/18 08:14 Not Given BIDWM FERNANDO Metformin HCl 1,000 mg 03/20/18 17:30 Glucophage 500mg Tablet PO 04/19/18 17:29 BIDWM FERNANDO Metoprolol Succinate 12.5 mg 03/19/18 09:00 03/19/18 08:41 Toprol Xl 25mg Tablet PO 04/18/18 08:59 12.5 mg DAILY FERNANDO Administration Metoprolol Tartrate 50 mg 03/17/18 19:17 03/17/18 19:17 Lopressor 50mg Tablet PO 03/17/18 19:18 50 mg ONCE ONE Administration Midazolam HCl 1 mg 03/18/18 07:32 Midazolam 2mg/2ml Vial IV 03/19/18 07:32 Q3MINP PRN Sedation Midazolam HCl 1 mg 03/18/18 07:32 03/18/18 12:40 Midazolam 1mg/Ml 5ml Vial IV 03/19/18 07:32 1 mg Q3MINP PRN Administration Sedation Midazolam HCl 1 mg 03/18/18 08:20 Midazolam 1mg/Ml 5ml Vial IV 03/19/18 08:20 Q3MINP PRN Sedation Midazolam HCl 1 mg 03/18/18 08:20 Midazolam 2mg/2ml Vial IV 03/19/18 08:20 Q3MINP PRN Sedation Midazolam HCl 1 mg 03/22/18 12:43 Midazolam 2mg/2ml Vial IV 03/23/18 12:43 Q3MINP PRN Sedation Midazolam HCl 1 mg 03/22/18 12:43 Midazolam 1mg/Ml 5ml Vial IV 03/23/18 12:43 Q3MINP PRN Sedation Miscellaneous 1 each 03/18/18 14:10 Consider Dual Antiplatelet Therapy For Stent * 04/17/18 14:09 NEEDED PRN Reminder for s/p stent Morphine Sulfate 4 mg 03/17/18 20:32 Morphine 4mg/Ml Syringe IV 04/16/18 20:31 Q4HP PRN Severe Pain Naloxone HCl 0.4 mg 03/18/18 07:32 Narcan 0.4mg/Ml Vial IV 03/19/18 07:32 Q5MINP PRN Decreased respirations Naloxone HCl 0.4 mg 03/18/18 08:20 Narcan 0.4mg/Ml Vial IV 03/19/18 08:20 Q5MINP PRN Decreased respirations Naloxone HCl 0.4 mg 03/22/18 12:43 Narcan 0.4mg/Ml Vial IV 03/23/18 12:43 Q5MINP PRN Decreased respirations Nitroglycerin 0.4 mg 03/17/18 19:06 03/17/18 19:09 Nitrostat 0.4mg Sl Tablet SL 03/18/18 19:06 1 tab Q5MINP PRN Administration Chest Pain Nitroglycerin 1 gm 03/17/18 20:05 03/17/18 20:06 Nitroglycerin 1 Inch Oint Udp TD 03/17/18 20:06 1 gm ONCE ONE Administration Nitroglycerin 0.4 mg 03/18/18 07:33 03/18/18 07:40 Nitrostat 0.4mg Sl Tablet SL 04/17/18 07:32 1 tab Q5MINP PRN Administration Chest Pain Nitroglycerin 1 gm 03/18/18 07:45 03/18/18 18:53 Nitroglycerin 1 Inch Oint Udp TD 04/17/18 07:44 Not Given Q6H [facility] Nitroglycerin 800 mcg 03/18/18 08:20 03/18/18 11:25 Nitroglycerin 800mcg/8ml Syr (Culture Media Laboratory Assistant) IV 03/19/18 08:20 800 mcg NEEDED PRN Administration Emergency Box Flame Annealing Machine Setter Nitroglycerin 800 mcg 03/22/18 12:43 Nitroglycerin 800mcg/8ml Syr (Culture Media Laboratory Assistant) IV 03/23/18 12:43 NEEDED PRN Emergency Box Flame Annealing Machine Setter Pat Own Med 4 g 03/17/18 21:00 03/19/18 15:02 Voltaren 100gm TOPICAL 04/16/18 20:59 Not Given Topical Gel QID [facility] Non-Formulary Medication 100 unit 03/18/18 09:00 03/18/18 09:03 Insulin Aspart [Novolog] SQ 04/17/18 08:59 Not Given DAILY [facility] Pat Own Med 0.6 mg 03/18/18 09:00 03/19/18 08:40 Victoza 0.6 Mg SQ 04/17/18 08:59 0.6 mg DAILY FERNANDO Administration Non-Formulary Medication 1,000 mg 03/17/18 21:00 03/17/18 22:40 Metformin Hcl [Glucophage] PO 04/16/18 20:59 Not Given BID [facility] Ondansetron HCl 4 mg 03/17/18 20:32 Zofran 4mg/2ml Vial IV 04/16/18 20:31 Q8HP PRN Nausea Ondansetron HCl 4 mg 03/18/18 14:10 Zofran 4mg/2ml Vial IV 04/17/18 14:09 Q6HP PRN Nausea Pneumococcal Polyvalent Vaccine 25 mcg 03/19/18 15:00 03/19/18 15:01 Pneumovax 23 IM 03/19/18 15:01 25 mcg .ONCE ONE Administration Sodium Chloride 10 ml 03/17/18 20:32 03/17/18 23:01 Saline Flush 10ml Syringe IV 04/16/18 20:31 10 ml NEEDED PRN Administration Maintain IV Site Sodium Chloride 10 ml 03/18/18 08:20 Saline Flush 10ml Syringe IV 04/17/18 08:19 NEEDED PRN Maintain IV Site Verapamil HCl 2.5 mg 03/18/18 08:20 03/18/18 18:52 Verapamil 2.5mg/Ml 2ml Vial IV 03/18/18 08:21 Not Given ONCE ONE Verapamil HCl 2.5 mg 03/22/18 12:43 Verapamil 2.5mg/Ml 2ml Vial IV 03/22/18 12:44 ONCE ONE ORDERS Category Date Time Status Cardiology Consult [Consult to Cardiology] [CONS] Cons 03/17/18 20:32 Active Routine ECG Request by /[facility] 03/17/18 19:06 Stop Req - Radiology Data #1 Image(s): Chest Image Reviewed: Yes I reviewed the patient's radiology results, Yes I reviewed the patient's radiology image Preliminary Findings: Normal/NAD - ECG Data Tracing #1 I reviewed this ECG and interpreted as documented below: ECG initial impression date: 03/17/18 (NSR;Non specific ST&T change;Tachycardia) Normal Sinus Rhythm: Yes Arrhythmias present: sinus tach Ischemic changes: non-specific ST-T wave changes Tracing #2 I reviewed this ECG and interpreted as documented below: ECG initial impression date: 03/17/18 (NSR;Non specific ST&T change) - Physician Consults Physician Consulted: Eyad Time: 19:30 Comment/Response: Give Metoprolol;Admit Observation - Reevaluation(s) Time: 20:01 Reevaluation #1: Improved Chest Pain HPI - General Chief Complaint: Chest Pain Stated Complaint: Chest pain Time Seen by Provider: 03/17/18 19:14 Mode of Arrival: Ambulatory Limitations: No Limitations Description of Symptoms (Recalled from ER Triage Doc. by RN): Pt states that she started with chest pain around 1730, some nausea denies pain going anywhere else at thist time with some SOA. States with movement pain increases - History of Present Illness MD complaint: chest pain Onset (ago): hour(s) (2) Duration: constant Activity at onset: light activity Pain location: substernal, left chest Severity: moderate Severity scale (1-10): 5 Quality: tightness Pain radiation: none Relieving factors: nitroglycerin Exacerbating factors: exertion Associated symptoms: nausea, dyspnea Risk Factors for CAD: Hypertension (CAD), Diabetes Treatments prior to or on arrival for Cardiac Chest Pain: aspirin - Related Data Prior Cardiac Testing/Procedures: Cardiac Angiogram On Oral Contraceptives: No Home Medications Medication Instructions Recorded Confirmed RX: Insulin Aspart [Novolog] 0 unit SQ DIRECTED 06/09/17 03/22/18 RX: Aspirin [Low Dose Aspirin EC] 81 mg PO DAILY 08/24/17 03/22/18 RX: Fenofibrate Nanocrystallized 48 mg PO DAILY 08/24/17 03/22/18 [Tricor] RX: buPROPion HCl [Wellbutrin SR 150 mg PO DAILY 08/25/17 03/22/18 150mg Tablet] armodafinil 200 mg tablet 200 mg PO DAILY 30 Days #30 01/18/18 03/22/18 insulin glargine (U-100) 100 60 unit SQ DAILY 01/18/18 03/22/18 unit/mL (3 mL) subcutaneous pen liraglutide 0.6 mg/0.1 mL (18 mg/3 0.6 mg SQ DAILY 02/11/18 03/22/18 mL) subcutaneous pen injector furosemide 40 mg tablet 40 mg PO DAILY 30 Days tab 03/08/18 03/22/18 omeprazole 20 mg tablet,delayed 40 mg PO DAILY 30 Days #60 tab 03/08/18 03/22/18 release RX: Levothyroxine Sodium 150 mcg PO DAILY 03/17/18 03/22/18 [Synthroid 150mcg (0.15mg) tablet] RX: Metformin HCl [Glucophage] 1,000 mg PO BID 03/17/18 03/22/18 RX: Oxybutynin Chloride 10 mg PO DAILY 03/17/18 03/22/18 [Oxybutynin Chloride ER] RX: Metoprolol Tartrate [Lopressor 25 mg PO BID 03/18/18 03/22/18 25mg tablet] RX: Pregabalin [Lyrica 150mg Cap] 150 mg PO BID 03/18/18 03/22/18 RX: Sertraline HCl [Zoloft 100mg 100 mg PO DAILY 03/18/18 03/22/18 tablet] RX: Atorvastatin Calcium [Lipitor 40 mg PO HS 03/22/18 03/22/18 40mg Tablet] RX: Insulin Lispro [HumaLOG 100 0 unit SQ ACHS 03/22/18 03/22/18 units/mL 3mL vial (SSI)] RX: Pen Needle, Diabetic [Techlite 0 each .ROUTE .MEDSUPPLY 03/22/18 03/22/18 Pen Needle] Previous Rx's Medication Instructions Recorded estradiol 1 mg tablet 1 mg PO DAILY 30 Days #30 tab 08/31/17 losartan 25 mg tablet 25 mg PO DAILY 90 Days #90 tab 10/21/17 RX: Hydrocod/Acet 5/325 mg [[place] 1 tab PO Q4HP PRN tab 03/19/18 5/325mg tablet] cetirizine 10 mg tablet 10 mg PO DAILY 90 Days #90 tab 03/22/18 clopidogrel 75 mg tablet 75 mg PO DAILY 30 Days #30 tab 03/22/18 Allergies Allergy/AdvReac Type Severity Reaction Status Date / Time hydroxyzine [From [facility]ISTARIL] Allergy Unknown NA-DROWSY Verified 03/22/18 12:14 lisinopril [LISINOPRIL] Allergy Unknown COUGH Verified 03/22/18 12:14 [facility] History I have reviewed the patient's past medical history: Yes Medical History: Reports:: Coronary Artery Disease, Depression, Diabetes Mellitus Type 2, Hyperlipidemia, Hypertension, Myocardial Infarction Other Medical History: Reports: Arthritis, Hormone Therapy, Hypothyroidism, Sinus Problems Laterality Cases: Bilateral: Carpal Tunnel Release, Tonsillectomy Other Surgeries: Yes: Appendectomy, Cardiac Catheterization, Colonoscopy, Coronary Stent, Hysterectomy-Total Amputation: No Fractures: No - Social History Smoking Status: Never smoker Alcohol Intake: never Alcohol Intake Frequency:: other Substance Use Type: denies use Occupational Status: employed Housing: house Household Members: significant other - Psychiatric History Expresses thoughts of harming self/others: None Suicide Plan Description: No Plan Pschychiatric History:: Reports:: Depression Family Hx:: Heart Attack, Diabetes, Hypertension, Stroke Comment: COPD ROS Obtained: Yes All systems reviewed & no additional complaints - Constitutional Constitutional: Reports system reviewed and no additional complaints, except as docu - Cardiovascular Cardiovascular: Reports chest pain, Reports chest pain at rest, Reports chest pain with activity, Reports dyspnea - Respiratory Respiratory: Yes system reviewed and no additional complaints, except as docu, Yes dyspnea - Gastrointestinal Gastrointestingal: Reports: system reviewed and no additional complaints, except as docu, nausea - Neurologic Neurologic: Reports system reviewed and no additional complaints, except as docu Physical Exam - General General appearance: alert, in no apparent distress - Head Head exam: atraumatic, normocephalic, normal inspection - Eye Eye exam: Present: normal appearance, PERRL, EOMI - ENT ENT exam: Present: normal exam, normal oropharynx, mucous membranes moist, TM's normal bilaterally, normal external ear exam - Neck Neck exam: Present: normal inspection, full ROM, trachea midline. Absent: meningismus, lymphadenopathy - Chest Chest inspection: Present: normal inspection, symmetric chest wall rise. A bsent: tenderness - Respiratory Respiratory exam: Present: normal lung sounds bilaterally. Absent: respiratory distress - Cardiovascular Cardiovascular exam: Present: regular rate, normal rhythm, tachycardia. Absent: JVD - Abdominal Exam Abdominal exam: Present: soft, normal bowel sounds. Absent: distention, tenderness, guarding - Extremities Exam Extremities exam: Present: normal inspection, full ROM, normal capillary refill. Absent: calf tenderness - Back Exam Back exam: Present: normal inspection. Absent: tenderness - Neurological Exam Neurological exam: Present: alert, oriented X3 - Psychiatric Psychiatric exam: Present: normal affect, normal mood
[2018-03-17 19:30] LABS: Anion Gap 14.3 mEq/L (5-15); Blood Urea Nitrogen 15 mg/dL (7-18); Calcium 8.8 mg/dL (8.5-10.1); Carbon Dioxide 26 mmol/L (21.0-32.0); Chloride 97 mmol/L (98-107); Sodium 133 mmol/L (136-145)
[2018-03-17 19:31] LABS: Potassium 4.3 mmoL/L (3.5-5.1)
[2018-03-17 19:32] LABS: Glucose 577 mg/dL (74-106)
[2018-03-17 20:01] LABS: Lymphocytes % 7 % (10-50); Monocytes % 4 % (2-9); Neutrophils % 89 % (42-76); RBC Morphology Normal; Total Cells Counted 100
--- NOTE | 2018-03-17 20:38 | History & Physical Report ---
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 States with movement pain increases pt with some improvement with ntg but still had pain and was admitted after discussed with dr teo mccray =3 [facility] History I have reviewed the patient's past medical history: Yes Medical History: Reports:: Coronary Artery Disease, Depression, Diabetes Mellitu s Type 2, Hyperlipidemia, Hypertension, Myocardial Infarction Other Medical History: Reports: Arthritis, Hormone Therapy, Hypothyroidism, Sinus Problems Laterality Cases: Bilateral: Carpal Tunnel Release, Tonsillectomy Other Surgeries: Yes: Appendectomy, Cardiac Catheterization, Colonoscopy, Coronary Stent, Hysterectomy-Total Amputation: No Fractures: No - *Social History Smoking Status: Never smoker Alcohol Intake: never Alcohol Intake Frequency:: other Substance Use Type: denies use Occupational Status: employed Housing: house Household Members: significant other - Psychiatric History Expresses thoughts of harming self/others: None Suicide Plan Description: No Plan Pschychiatric History:: Reports:: Depression *Family Hx:: Heart Attack, Diabetes, Hypertension, Stroke Review of Systems - Review of Systems Review of systems:: pertinent systems reviewed and negative unless documented below - Constitutional Denies fever(s) - Eyes Denies change in vision - ENT Denies sore throat, Denies dizziness - *Cardiovascular Reports chest pain at rest, Denies irregular heart rhythm, Denies radiating jaw, neck or arm pain - *Respiratory Denies cough - *Gastrointestinal Denies abdominal pain - *Genitourinary Denies blood in urine - *Musculoskeletal Denies joint pain - Integumentary/Breasts Denies rash - *Neurologic Denies seizure-like activity - Psychiatric Denies anxiety Meds Home Medications Medication Instructions Recorded Confirmed Type Insulin Aspart [Novolog] 100 unit SQ DAILY 06/09/17 03/17/18 History Pregabalin [Lyrica 75mg Cap] 150 mg PO DAILY 06/09/17 03/17/18 History sertraline 50 mg tablet 100 mg PO DAILY tab 07/13/17 03/17/18 History Aspirin [Low Dose Aspirin EC] 81 mg PO QDAY 08/24/17 03/17/18 History Fenofibrate Nanocrystallized 48 mg PO DAILY 08/24/17 03/17/18 History [Tricor] buPROPion HCl [Wellbutrin SR 150mg 150 mg PO DAILY 08/25/17 03/17/18 History Tablet] armodafinil 200 mg tablet 200 mg PO DAILY 30 Days #30 01/18/18 03/17/18 History insulin glargine (U-100) 100 10 unit SUB-Q DAILY 01/18/18 03/17/18 History unit/mL (3 mL) subcutaneous pen liraglutide 0.6 mg/0.1 mL (18 mg/3 0.6 mg SQ DAILY 02/11/18 03/17/18 History mL) subcutaneous pen injector furosemide 40 mg tablet 40 mg PO DAILY 30 Days tab 03/08/18 03/17/18 History omeprazole 20 mg tablet,delayed 20 mg PO DAILY 30 Days #60 tab 03/08/18 03/17/18 History release Clopidogrel Bisulfate [Plavix 75mg 75 mg PO DAILY 03/17/18 03/17/18 History Tab] Levothyroxine Sodium [Synthroid 150 mcg PO DAILY 03/17/18 03/17/18 History 150mcg (0.15mg) tablet] Metformin HCl [Glucophage] 1,000 mg PO BID 03/17/18 03/17/18 History Oxybutynin Chloride [Oxybutynin 10 mg PO DAILY 03/17/18 03/17/18 History Chloride ER] Allergies Allergy/AdvReac Type Severity Reaction Status Date / Time hydroxyzine [From VISTARIL] Allergy Unknown NA-DROWSY Verified 03/17/18 12:11 lisinopril [LISINOPRIL] Allergy Unknown COUGH Verified 03/17/18 12:11 Exam Vital signs and Labs for Last 24 Hours: Temp Pulse Resp BP Pulse Ox 98.1 F 86 16 109/54 L 94 L 03/17/18 19:14 03/17/18 20:24 03/17/18 20:24 03/17/18 20:24 03/17/18 20:24 Laboratory Results - last 24 hr 03/17/18 19:03: WBC 7.4, RBC 4.56, Hgb 13.9, Hct 44.6, MCV 97.8, MCH 30.4, MCHC 31.1 L, RDW 14.9, Plt Count 235, MPV 7.0 L, Neut % (Auto) 88.3 H, Lymph % (Auto) 9.5 L, [place] % (Auto) 1.8, Eos % (Auto) 0.3, Baso % (Auto) 0.1, Neut # (Auto) 6.6, Lymph # (Auto) 0.7, [place] # (Auto) 0.1, Eos # (Auto) 0.0, Baso # (Auto) 0.0, Total Counted 100, Neutrophils % (Manual) 89 H, Lymphocytes % (Manual) 7 L, Monocytes % (Manual) 4, Platelet Estimate Normal, RBC Morphology Normal 03/17/18 19:03: Sodium 133 L, Potassium 4.3, Chloride 97 L, Carbon Dioxide 26, Anion Gap 14.3, BUN 15, Creatinine 1.22 H, Estimated Creat Clear 68, Estimated GFR 45 L, Est GFR ( Amer) 54 L, Glucose 577 H*, Calcium 8.8, Troponin I < 0.02 I & O for Last 24 hours: Intake & Output 03/15/18 03/16/18 03/17/18 03/18/18 11:59 11:59 11:59 11:59 Weight 197 lb - Constitutional no acute distress, obese - *Routine HEENT Exam Head: Present: normocephalic Eye: Present: EOMI, PERRL ENT: Present: mucous membranes dry - *Routine Neck Exam Absent: JVD - *Routine Respiratory Exam Present: CTA bilaterally - *Routine Cardiovascular Exam Present: RRR, murmur, S4 - *Routine Abdominal Exam Present: soft - *Routine Extremities Exam Absent: Blessing's sign - *Routine Skin Exam Present: intact - *Routine Neurological Exam Present: alert, oriented X3, CN II-XII intact - Routine Psychiatric Exam Present: normal affect Assessment and Plan (1) Chest pain Current visit: Yes Status: Acute Qualifiers: Chest pain type: unspecified Qualified Code(s): R07.9 - Chest pain, unspecified Category: Medical Code(s): R07.9 - Chest pain, unspecified (2) CAD (coronary artery disease) Current visit: Yes Status: Chronic Qualifiers: Coronary Disease-Associated Artery/Lesion type: [place] artery [place] vs. 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
[2018-03-18 06:27] LABS: Eosinophils % 0.3 % (0.1-12.0); Lymphocytes # 1.2 K/mm3 (0.7-4.5); Monocytes # 0.4 K/mm3 (0.1-1.0); Neutrophils # 5.7 K/mm3 (1.8-7.8); Neutrophils % 77.9 % (37.0-80.0)
[2018-03-18 06:34] LABS: Anion Gap 9.8 mEq/L (5-15); Calcium 8.6 mg/dL (8.5-10.1); Potassium 3.8 mmoL/L (3.5-5.1)
[2018-03-18 06:35] LABS: Basophils % 0.1 % (0.1-2.0); Hematocrit 38.4 % (37.0-47.0); Lymphocytes % 16.7 K/mm3 (10-50); Mean Corpuscular Volume 93.8 fl (81-99); Mean Platelet Volume 6.8 fl (7.4-10.4); Monocytes % 4.9 % (1.7-9.3); Platelet Count 214 K/mm3 (142-424); Red Blood Count 4.09 M/mm3 (4.20-5.40); Red Cell Distribution Width 14.8 % (11.5-17.5); White Blood Count 7.3 K/mm3 (4.8-10.8)
[2018-03-18 06:36] LABS: Hemoglobin 12.3 g/dL (12.2-16.2)
--- NOTE | 2018-03-18 07:38 | Consult Report ---
Addendum entered and electronically signed by UCHE Perry 03/18/18 14:04: Cardiac cath performed with DANIEL placed to LAD and Ramus. RCA unable to be revascularized. Not a candidate for CABG. Medical therapy only. Will start low dose metoprolol and increase lasix due to elevated LVEDP. Recommended home meds: ASA 81 mg daily Plavix 75 mg daily Metoprolol succinate ER 12.5 mg Daily Fenofibrate 54 mg daily Atorvastatin 20 mg daily furosemide 80 mg BID Avapro 75 mg daily Follow up next week with BMP on day of visit. Original Note: History of Present Illness Consult date: 03/18/18 Requesting physician: Salomón Delacruz Consult reason: chest pain Chief complaint: chest pain Additional Medical History:: 1. Hypertension 2. Hyperlipidemia 3. Diabetes mellitus, treated for greater than 30 years 4. CAD A. Cardiac cath, 10/2016, DANIEL to Cx and RCA. Small LAD (2 mm) with stenosis for which medical therapy recommended. B. NSTEMI, 03/2018 5. History of depression 6. Hypothyroidism, on replacement therapy History of present illness: 62-year-old white female with known coronary artery disease, diabetes and hypertension presented to the emergency department for evaluation of chest pain that onset at 5:30 PM yesterday. Symptoms worsened with activity. Symptoms improved after nitroglycerin x2 and placement of nitroglycerin paste. Patient's initial troponin was normal but have turned positive overnight. Patient's discomfort was relieved throughout the night until this morning she began to have some recurrent chest discomfort for which nitroglycerin and nitroglycerin paste replaced. Cardiology consulted for evaluation recommendations. EKG shows sinus rhythm with baseline inferior and lateral ST segment abnormalities. No acute ST elevation noted. Patient was seen in the office last month for some atypical chest discomfort and back pain for which a Lexiscan Myoview stress test was ordered, however it was never performed. Patient states the discomfort last night is different and worse than what she previously described last month. [facility] History Medical History: Reports:: Coronary Artery Disease, Depression, Diabetes Mellitus Type 2, Hyperlipidemia, Hypertension, Myocardial Infarction Denies:: Cancer, MRSA Other Medical History: Reports: Arthritis, Hormone Therapy, Hypothyroidism, Sinus Problems Laterality Cases: Bilateral: Carpal Tunnel Release, Tonsillectomy, Other Other Surgeries: Yes: Appendectomy, Cardiac Catheterization, Colonoscopy, Coronary Stent, Hysterectomy-Total, Other (CARPEL TUNNEL;) Amputation: No Fractures: No - *Social History Educational Level: Completed College Smoking Status: Never smoker Alcohol Intake: never Alcohol Intake Frequency:: other Substance Use Type: denies use Occupational Status: employed Housing: house Household Members: significant other - Psychiatric History Expresses thoughts of harming self/others: None Suicide Plan Description: No Plan Pschychiatric History:: Reports:: Depression *Family Hx:: Anemia, Asthma, Diabetes, Heart Attack, Hyperlipidemia, Hypertension, Kidney Disease, Stroke, Thyroid Disorder Meds Home Medications Medication Instructions Recorded Confirmed Type Insulin Aspart [Novolog] 100 unit SQ TID 06/09/17 03/17/18 History Pregabalin [Lyrica 75mg Cap] 150 mg PO BID 06/09/17 03/17/18 History sertraline 50 mg tablet 100 mg PO DAILY tab 07/13/17 03/17/18 History Aspirin [Low Dose Aspirin EC] 81 mg PO QDAY 08/24/17 03/17/18 History Fenofibrate Nanocrystallized 48 mg PO DAILY 08/24/17 03/17/18 History [Tricor] buPROPion HCl [Wellbutrin SR 150mg 150 mg PO DAILY 08/25/17 03/17/18 History Tablet] armodafinil 200 mg tablet 200 mg PO NEEDED PRN 30 Days #30 01/18/18 03/17/18 History insulin glargine (U-100) 100 60 unit SUB-Q DAILY 01/18/18 03/17/18 History unit/mL (3 mL) subcutaneous pen liraglutide 0.6 mg/0.1 mL (18 mg/3 0.6 mg SQ DAILY 02/11/18 03/17/18 History mL) subcutaneous pen injector furosemide 40 mg tablet 40 mg PO DAILY 30 Days tab 03/08/18 03/17/18 History omeprazole 20 mg tablet,delayed 40 mg PO DAILY 30 Days #60 tab 03/08/18 03/17/18 History release Clopidogrel Bisulfate [Plavix 75mg 75 mg PO DAILY 03/17/18 03/17/18 History Tab] Levothyroxine Sodium [Synthroid 150 mcg PO DAILY 03/17/18 03/17/18 History 150mcg (0.15mg) tablet] Metformin HCl [Glucophage] 1,000 mg PO BID 03/17/18 03/17/18 History Oxybutynin Chloride [Oxybutynin 10 mg PO DAILY 03/17/18 03/17/18 History Chloride ER] Allergies Allergy/AdvReac Type Severity Reaction Status Date / Time hydroxyzine [From VISTARIL] Allergy Unknown NA-DROWSY Verified 03/17/18 12:11 lisinopril [LISINOPRIL] Allergy Unknown COUGH Verified 03/17/18 12:11 Review of Systems - *Cardiovascular Reports chest pain, Reports shortness of breath with activity - *Respiratory Reports shortness of breath with activity - *Gastrointestinal Denies abdominal pain, Denies loose stools - *Genitourinary Denies blood in urine - *Musculoskeletal Reports joint pain - *Neurologic Denies seizure-like activity, Denies dizziness Exam Vital signs and Labs for Last 24 Hours: Temp Pulse Resp BP Pulse Ox 98.1 F 60 17 118/59 L 95 03/18/18 04:30 03/18/18 06:08 03/18/18 04:30 03/18/18 04:30 03/18/18 04:30 Laboratory Results - last 24 hr 03/17/18 19:03: WBC 7.4, RBC 4.56, Hgb 13.9, Hct 44.6, MCV 97.8, MCH 30.4, MCHC 31.1 L, RDW 14.9, Plt Count 235, MPV 7.0 L, Neut % (Auto) 88.3 H, Lymph % (Auto) 9.5 L, Ray % (Auto) 1.8, Eos % (Auto) 0.3, Baso % (Auto) 0.1, Neut # (Auto) 6.6, Lymph # (Auto) 0.7, Ray # (Auto) 0.1, Eos # (Auto) 0.0, Baso # (Auto) 0.0, Total Counted 100, Neutrophils % (Manual) 89 H, Lymphocytes % (Manual) 7 L, Monocytes % (Manual) 4, Platelet Estimate Normal, RBC Morphology Normal 03/17/18 19:03: Sodium 133 L, Potassium 4.3, Chloride 97 L, Carbon Dioxide 26, Anion Gap 14.3, BUN 15, Creatinine 1.22 H, Estimated Creat Clear 68, Estimated GFR 45 L, Est GFR ( Amer) 54 L, Glucose 577 H*, Calcium 8.8, Troponin I < 0.02 03/17/18 22:58: Troponin I 0.12 H 03/17/18 22:59: POC Glucose 479 H* 03/18/18 02:09: Troponin I 0.22 H 03/18/18 06:03: WBC 7.3, RBC 4.09 L, Hgb 12.3 D, Hct 38.4, MCV 93.8, MCH 30.0, MCHC 32.0, RDW 14.8, Plt Count 214, MPV 6.8 L, Neut % (Auto) 77.9, Lymph % (Auto) 16.7, Ray % (Auto) 4.9, Eos % (Auto) 0.3, Baso % (Auto) 0.1, Neut # (Auto) 5.7, Lymph # (Auto) 1.2, Ray # (Auto) 0.4, Eos # (Auto) 0.0, Baso # (Auto) 0.0 03/18/18 06:03: Sodium 139, Potassium 3.8, Chloride 105, Carbon Dioxide 28, Anion Gap 9.8, BUN 13, Creatinine 0.68 D, Estimated Creat Clear 87, Estimated GFR 88, Est GFR ( Amer) 106 D, Glucose 195 H D, Calcium 8.6 03/18/18 06:08: POC Glucose 196 H I & O for Last 24 hours: Intake & Output 03/15/18 03/16/18 03/17/18 03/18/18 11:59 11:59 11:59 11:59 Intake Total 606 / 606 Balance 606 / 606 Weight 204 lb 9 oz - *Routine Neck Exam Present: supple. Absent: JVD, carotid bruit - *Routine Respiratory Exam Present: CTA bilaterally. Absent: accessory muscle use, rales, rhonchi, wheezes - *Routine Cardiovascular Exam Present: RRR. Absent: murmur, gallop, rubs - *Routine Abdominal Exam Present: soft. Absent: tenderness, distended, guarding - *Routine Extremities Exam Absent: edema, calf tenderness - *Routine Neurological Exam Present: alert, oriented X3, moving all extremities Assessment and Plan (1) Chest pain Current visit: Yes Status: Acute Qualifiers: Chest pain type: unspecified Qualified Code(s): R07.9 - Chest pain, unspecified Category: Medical Code(s): R07.9 - Chest pain, unspecified (2) CAD (coronary artery disease) Current visit: Yes Status: Chronic Qualifiers: Coronary Disease-Associated Artery/Lesion type: [place] artery [place] vs. transplanted heart: [place] heart Associated angina: angina presence unspecified Qualified Code(s): I25.10 - Atherosclerotic heart disease of [place] coronary artery without angina pectoris Category: Medical Code(s): I25.10 - Atherosclerotic heart disease of [place] coronary artery without angina pectoris (3) Diabetes Current visit: No Status: Chronic Qualifiers: Diabetes mellitus type: type 2 Diabetes mellitus longterm insulin use: without manager long term care use Diabetes mellitus complication status: with circulatory complication Diabetes mellitus complication detail: with other circulatory complications Qualified Code(s): E11.59 - Type 2 diabetes mellitus with other circulatory complications Category: Medical Code(s): E11.9 - Type 2 diabetes mellitus without complications (4) Overweight Current visit: Yes Status: Acute Category: Medical Code(s): E66.3 - Overweight - Assessment and plan all Dx Assessment and Plan for all problems:: 1. Non-ST elevation [place]. Patient will continue aspirin and Plavix along with beta-hien. Proceed with left heart catheterization this a.m. with further recommendations to follow.
--- NOTE | 2018-03-18 07:47 | Pharmacy Consult Notes ---
[facility] Pharmacy VTE Monitoring - Patient Demographics Admission date: 03/17/18 Report Date: 03/18/18 Time: 07:47 Allergies/Adverse Reactions: Patient Allergies hydroxyzine [From VISTARIL] Allergy (Unknown, Verified 03/17/18 12:11) NA-DROWSY lisinopril [LISINOPRIL] Allergy (Unknown, Verified 03/17/18 12:11) COUGH Height: 1.65 m Weight: 92.788 kg Patient Problems: Current Active Problems Chest pain (Acute) Hyperglycemia (Acute) Overweight (Acute) CAD (coronary artery disease) (Chronic) - VTE Risk Labs: VTE Related Lab Results Hgb 12.3 g/dL (12.2-16.2) D 03/18/18 06:03 Hct 38.4 % (37.0-47.0) 03/18/18 06:03 Plt Count 214 K/mm3 (142-424) 03/18/18 06:03 BUN 13 mg/dL (7-18) 03/18/18 06:03 Creatinine 0.68 mg/dL (0.55-1.02) D 03/18/18 06:03 Estimated Creat Clear 87 mL/min (0-300) 03/18/18 06:03 VTE Score: 6 VTE Risk Level: Moderate Risk - Prophylaxis VTE Prophylaxis Ordered?: Yes Types of VTE Prophylaxis: TEDS Knee High Location of Applied Device: Bilateral Lower Extremeties - VTE Diagnosis Confirmed Treatment or plan recommended: Continue Current Treatment
--- NOTE | 2018-03-18 10:08 | Cardiology Report ---
PROCEDURE: 2-D M-mode and color Doppler study INDICATIONS FOR THE TEST: Chest pain X COPD Heart Murmur Tobacco Smoking Palpitations Fatigue Syncope Edema HypertensionXDiabetes Mellitus X Rheumatic Fever SOB VILLARREAL ObesityXHyperlipidemiaX Family History HD Additional History CAD STENTS PATIENT INFORMATION HEIGHT: 66 WEIGHT:197 GENDER: Female B/P:109/54 2-D/M-MODE INTERPRETATION: 2-D MEASUREMENTS OBSERVED VALUES IN CMS Right Ventricular Dimension (RVDd) 1.8 Interventricular Septum (Thickness)(IVsd) 1.3 Left Ventricular Internal Dimensions(LVIDd) 5.6 Left Ventricular Posterior Wall (Thickness)(LVPWd) .6 Aortic Root 2.0 Aortic Cusp Separation Left Atrial Dimensions (LAD) 2.4 2D 1. Left atrium is mildly enlarged, left ventricle is normal size, mild concentric left ventricular hypertrophy, visually estimated ejection fraction 55% with no regional wall motion abnormality. 2. The right atrium and right ventricle are normal size and contractility. 3. The aortic valve is thickened and calcified leaflet continue to display mobility. 4. The mitral and tricuspid valve are grossly normal. 5. The pulmonic valve is poorly visualized. 6. No significant pericardial effusion noted. DOPPLER INTERROGATION: Doppler interrogation of the aortic, mitral and tricuspid valvular presence of mild mitral and tricuspid regurgitation, tricuspid regurgitation jet velocity is insufficient for calculation of the right ventricular systolic pressure, grade 1 diastolic dysfunction seen with tissue Doppler evidence of raised left atrial pressure. CONCLUSION: 1. Mildly left atrium, normal left ventricular size, mild concentric left ventricular hypertrophy, visually estimated ejection fraction 55% with no regional wall motion abnormality, grade 1 diastolic dysfunction seen with tissue Doppler evidence of raised left atrial pressure. 2. Mild mitral and tricuspid regurgitation 3. No significant pericardial effusion noted.
--- NOTE | 2018-03-18 13:19 | Progress Note ---
Internal Medicine - PN: Subj *Date: 03/18/18 *Time: 08:00 Exam Vital signs and Labs for Last 24 Hours: Temp Pulse Resp BP Pulse Ox 97.2 F L 70 20 96/47 L 91 L 03/18/18 07:35 03/18/18 08:00 03/18/18 07:35 03/18/18 07:35 03/18/18 07:35 Laboratory Results - last 24 hr 03/17/18 19:03: WBC 7.4, RBC 4.56, Hgb 13.9, Hct 44.6, MCV 97.8, MCH 30.4, MCHC 31.1 L, RDW 14.9, Plt Count 235, MPV 7.0 L, Neut % (Auto) 88.3 H, Lymph % (Auto) 9.5 L, [place] % (Auto) 1.8, Eos % (Auto) 0.3, Baso % (Auto) 0.1, Neut # (Auto) 6.6, Lymph # (Auto) 0.7, [place] # (Auto) 0.1, Eos # (Auto) 0.0, Baso # (Auto) 0.0, Total Counted 100, Neutrophils % (Manual) 89 H, Lymphocytes % (Manual) 7 L, Monocytes % (Manual) 4, Platelet Estimate Normal, RBC Morphology Normal 03/17/18 19:03: Sodium 133 L, Potassium 4.3, Chloride 97 L, Carbon Dioxide 26, Anion Gap 14.3, BUN 15, Creatinine 1.22 H, Estimated Creat Clear 68, Estimated GFR 45 L, Est GFR ( Amer) 54 L, Glucose 577 H*, Calcium 8.8, Troponin I < 0.02 03/17/18 22:58: Troponin I 0.12 H 03/17/18 22:59: POC Glucose 479 H* 03/18/18 02:09: Troponin I 0.22 H 03/18/18 06:03: WBC 7.3, RBC 4.09 L, Hgb 12.3 D, Hct 38.4, MCV 93.8, MCH 30.0, MCHC 32.0, RDW 14.8, Plt Count 214, MPV 6.8 L, Neut % (Auto) 77.9, Lymph % (Auto) 16.7, [place] % (Auto) 4.9, Eos % (Auto) 0.3, Baso % (Auto) 0.1, Neut # (Auto) 5.7, Lymph # (Auto) 1.2, [place] # (Auto) 0.4, Eos # (Auto) 0.0, Baso # (Auto) 0.0 03/18/18 06:03: Sodium 139, Potassium 3.8, Chloride 105, Carbon Dioxide 28, Anion Gap 9.8, BUN 13, Creatinine 0.68 D, Estimated Creat Clear 87, Estimated GFR 88, Est GFR ( Amer) 106 D, Glucose 195 H D, Calcium 8.6 03/18/18 06:08: POC Glucose 196 H I & O for Last 24 hours: Intake & Output 03/16/18 03/17/18 03/18/18 03/19/18 11:59 11:59 11:59 11:59 Intake Total 966 / 966 Output Total 600 / 600 Balance 366 / 366 Weight 204 lb 9 oz 204 lb 9 oz - Constitutional no acute distress - *Routine HEENT Exam Head: Present: normocephalic Eye: Present: EOMI, PERRL ENT: Present: mucous membranes moist - *Routine Neck Exam Present: supple. Absent: lymphadenopathy - *Routine Respiratory Exam Present: CTA bilaterally - *Routine Cardiovascular Exam Present: RRR - *Routine Abdominal Exam Present: soft, normoactive bowel sounds. Absent: tenderness - *Routine Extremities Exam Absent: cyanosis, clubbing, edema - *Routine Skin Exam Present: warm. Absent: rash - *Routine Neurological Exam Present: alert, oriented X3 Assessment and Plan (1) Chest pain Current visit: Yes Status: Acute Qualifiers: Chest pain type: unspecified Qualified Code(s): R07.9 - Chest pain, unspecified Category: Medical Code(s): R07.9 - Chest pain, unspecified (2) CAD (coronary artery disease) Current visit: Yes Status: Chronic Qualifiers: Coronary Disease-Associated Artery/Lesion type: [place] artery [place] vs. transplanted heart: [place] heart Associated angina: angina presence unspecified Qualified Code(s): I25.10 - Atherosclerotic heart disease of [place] coronary artery without angina pectoris Category: Medical Code(s): I25.10 - Atherosclerotic heart disease of [place] coronary artery without angina pectoris (3) Diabetes Current visit: No Status: Chronic Qualifiers: Diabetes mellitus type: type 2 Diabetes mellitus [facility] insulin use: without [facility] use Diabetes mellitus complication status: with circulatory complication Diabetes mellitus complication detail: with other circulatory complications Qualified Code(s): E11.59 - Type 2 diabetes mellitus with other circulatory complications Category: Medical Code(s): E11.9 - Type 2 diabetes mellitus without complications (4) Overweight Current visit: Yes Status: Acute Category: Medical Code(s): E66.3 - Overweight - Assessment and plan all Dx Assessment and Plan for all problems:: rounded with dr mayer all orders per leyla heart cath today
[2018-03-19 06:17] LABS: Anion Gap 7.7 mEq/L (5-15); Calcium 7.9 mg/dL (8.5-10.1); Chol/HDL Ratio 3.2 (1-3.5); Potassium 3.7 mmoL/L (3.5-5.1)
[2018-03-19 06:22] LABS: Basophils % 0.4 % (0.1-2.0); Eosinophils # 0.2 K/mm3 (0.0-0.4); Eosinophils % 2.2 % (0.1-12.0); Hemoglobin 11.5 g/dL (12.2-16.2); Lymphocytes # 1.7 K/mm3 (0.7-4.5); Lymphocytes % 25.1 K/mm3 (10-50); Mean Corpuscular HGB Conc 35.8 g/dL (31.8-35.4); Mean Corpuscular Hemoglobin 34.2 pg (27.0-31.2); Mean Corpuscular Volume 95.4 fl (81-99); Mean Platelet Volume 7.1 fl (7.4-10.4); Monocytes # 0.3 K/mm3 (0.1-1.0); Monocytes % 4.9 % (1.7-9.3); Neutrophils # 4.5 K/mm3 (1.8-7.8); Neutrophils % 67.4 % (37.0-80.0); Platelet Count 186 K/mm3 (142-424); Red Blood Count 3.35 M/mm3 (4.20-5.40); Red Cell Distribution Width 14.9 % (11.5-17.5); White Blood Count 6.6 K/mm3 (4.8-10.8)
--- NOTE | 2018-03-19 09:48 | Discharge Summary ---
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 States with movement pain increases pt with some improvement with ntg but still had pain and was admitted after discussed with dr bruce - anahi =3 Hospital Course Hospital Course: cardiology consult: see note ANGIOGRAPHIC RESULTS: 1. The left main artery normal 2. The left anterior descending artery has proximal 70-80% stenosis with mid vessel 50% stenosis. The distal LAD is severely diseased with multiple moderate and severe stenoses throughout the mid to distal LAD. The entire mid and distal LAD had severe vasculopathic disease. The first diagonal artery has an ostial 80% stenosis followed by a proximal long 70-80% stenosis. This persisted after proximal to mid LAD 3. The ramus intermedius has an ostial proximal 99% stenosis followed by an additional 50% stenosis 4. The circumflex artery has proximal 40-50% stenoses with a 90% ostial stenosis following stent placement in the ramus intermedius. ANAIH-3 flow was present down the circumflex artery 5. The right coronary artery nondominant and proximally occluded with scant right to right collaterals 6. The SNEED ventriculogram reveals hyperdynamic 70-75% 7. The left ventricular end-diastolic pressure severely elevated at 30 mmHg IMPRESSION: 1. Severe coronary artery disease as described above 2. Successful stenting of the proximal to mid LAD severe disease reduced to 0% with 1 drug-eluting stent 3. Persistent severe mid to distal LAD disease. Small vessel vasculopathic mid and distal LAD 4. Severe disease in the ramus intermedius with successful stenting of the ramus intermedius critical disease reduced to 0% with 1 drug-eluting stent 5. Inconsequential jailing of the true circumflex artery with persistent ANAHI-3 flow 6. Attempted angioplasty of the jailed circumflex artery 7. Attempted angioplasty of the chronically occluded right coronary PLAN: 1. Dual antiplatelet therapy 2. Aggressive anti-ischemic therapy for diffuse vasculopathy 3. Patient would benefit from diuretics due to severely elevated LVEDP 4. Cardiac rehabilitation 5. Avoidance of tobacco products 6. LDL less than 55 7. Aggressive risk factor modification echo:CONCLUSION: 1. Mildly left atrium, normal left ventricular size, mild concentric left ventricular hypertrophy, visually estimated ejection fraction 55% with no regional wall motion abnormality, grade 1 diastolic dysfunction seen with tissue Doppler evidence of raised left atrial pressure. 2. Mild mitral and tricuspid regurgitation 3. No significant pericardial effusion noted. Patient denies any chest pain today and is asking to go home. Will discharge home and follow-up with Dr. Bruce next week remain off work until cleared by cardiology. Objective Vital signs: Temp Pulse Resp BP Pulse Ox 98.0 F 67 16 133/55 L 96 03/19/18 04:00 03/19/18 06:00 03/19/18 06:00 03/19/18 06:00 03/19/18 06:00 no acute distress - *Routine HEENT Exam Head: Present: normocephalic Eye: Present: PERRL ENT: Present: mucous membranes moist - *Routine Neck Exam Present: full ROM - *Routine Respiratory Exam Present: CTA bilaterally - *Routine Cardiovascular Exam Present: RRR - *Routine Abdominal Exam Present: soft - *Routine Extremities Exam Present: full ROM, pulses intact Comments: dressing to rt wrist - Routine Back/Spine/Pelvis Exam Back/Spine: Present: full ROM - *Routine Skin Exam Present: intact - *Routine Neurological Exam Present: alert, oriented X3 - Routine Psychiatric Exam Present: normal affect Results Labs on day of discharge: Labs from last 24 hours 03/19/18 03/19/18 03/19/18 06:04 05:40 05:40 WBC 6.6 RBC 3.35 L Hgb 11.5 L Hct 32.0 L MCV 95.4 MCH 34.2 H MCHC 35.8 H RDW 14.9 Plt Count 186 MPV 7.1 L Neut % (Auto) 67.4 Lymph % (Auto) 25.1 [place] % (Auto) 4.9 Eos % (Auto) 2.2 Baso % (Auto) 0.4 Neut # (Auto) 4.5 Lymph # (Auto) 1.7 [place] # (Auto) 0.3 Eos # (Auto) 0.2 Baso # (Auto) 0.0 Activated Clotting Time Sodium 140 Potassium 3.7 Chloride 105 Carbon Dioxide 31 Anion Gap 7.7 BUN 14 Creatinine 0.85 D Estimated Creat Clear 86 Estimated GFR 68 Est GFR ( Amer) 82 D Glucose 273 H D POC Glucose 259 H Calcium 7.9 L Triglycerides 113 Cholesterol 140 LDL Cholesterol 73 VLDL Cholesterol 23 HDL Cholesterol 44 Cholesterol/HDL Ratio 3.2 03/18/18 03/18/18 03/18/18 20:47 16:32 12:46 WBC RBC Hgb Hct MCV MCH MCHC RDW Plt Count MPV Neut % (Auto) Lymph % (Auto) [place] % (Auto) Eos % (Auto) Baso % (Auto) Neut # (Auto) Lymph # (Auto) [place] # (Auto) Eos # (Auto) Baso # (Auto) Activated Clotting Time 235 H* D Sodium Potassium Chloride Carbon Dioxide Anion Gap BUN Creatinine Estimated Creat Clear Estimated GFR Est GFR ( Amer) Glucose POC Glucose 306 H* 252 H Calcium Triglycerides Cholesterol LDL Cholesterol VLDL Cholesterol HDL Cholesterol Cholesterol/HDL Ratio 03/18/18 11:55 WBC RBC Hgb Hct MCV MCH MCHC RDW Plt Count MPV Neut % (Auto) Lymph % (Auto) [place] % (Auto) Eos % (Auto) Baso % (Auto) Neut # (Auto) Lymph # (Auto) [place] # (Auto) Eos # (Auto) Baso # (Auto) Activated Clotting Time 393 H* Sodium Potassium Chloride Carbon Dioxide Anion Gap BUN Creatinine Estimated Creat Clear Estimated GFR Est GFR ( Amer) Glucose POC Glucose Calcium Triglycerides Cholesterol LDL Cholesterol VLDL Cholesterol HDL Cholesterol Cholesterol/HDL Ratio - Additional Comments Dr. Delacruz rounded earlier today all orders per Dr. Delacruz DS: Diagnosis - Discharge Diagnosis (1) Chest pain Status: Acute (2) CAD (coronary artery disease) Status: Chronic (3) Diabetes Status: Chronic (4) Overweight Status: Acute Discharge Plan - Patient Discharge Instructions ACTIVITY: Continue current activity DIET: continue same diet - Follow up Plan Follow up with: Jayesh Bruce MD [Staff Physician] - 1 week Swathi Barton PA [Physician Coding Compliance Specialist] - 1 week Disposition: Home, Self-Group Home Medications: Home Medications Medication Instructions Recorded Confirmed Type Insulin Aspart [Novolog] 0 unit SQ DIRECTED 06/09/17 03/18/18 History Aspirin [Low Dose Aspirin EC] 81 mg PO DAILY 08/24/17 03/18/18 History Fenofibrate Nanocrystallized 48 mg PO DAILY 08/24/17 03/17/18 History [Tricor] buPROPion HCl [Wellbutrin SR 150mg 150 mg PO DAILY 08/25/17 03/17/18 History Tablet] armodafinil 200 mg tablet 200 mg PO DAILY 30 Days #30 01/18/18 03/18/18 History insulin glargine (U-100) 100 60 unit SQ DAILY 01/18/18 03/18/18 History unit/mL (3 mL) subcutaneous pen liraglutide 0.6 mg/0.1 mL (18 mg/3 0.6 mg SQ DAILY 02/11/18 03/17/18 History mL) subcutaneous pen injector furosemide 40 mg tablet 40 mg PO DAILY 30 Days tab 03/08/18 03/17/18 History omeprazole 20 mg tablet,delayed 40 mg PO DAILY 30 Days #60 tab 03/08/18 03/17/18 History release Levothyroxine Sodium [Synthroid 150 mcg PO DAILY 03/17/18 03/17/18 History 150mcg (0.15mg) tablet] Metformin HCl [Glucophage] 1,000 mg PO BID 03/17/18 03/17/18 History Oxybutynin Chloride [Oxybutynin 10 mg PO DAILY 03/17/18 03/17/18 History Chloride ER] Metoprolol Tartrate [Lopressor 25 mg PO BID 03/18/18 03/17/18 History 25mg tablet] Pregabalin [Lyrica 150mg Cap] 150 mg PO BID 03/18/18 03/18/18 History Sertraline HCl [Zoloft 100mg 100 mg PO DAILY 03/18/18 03/18/18 History tablet] Prescriptions/Medication Reconciliation: New Atorvastatin Calcium [Lipitor 40mg Tablet] 40 mg PO HS tablet Hydrocod/Acet 5/325 mg [Munday 5/325mg tablet] 1 tab PO Q4HP PRN tablet PRN Reason: Mild Pain Insulin Lispro [HumaLOG 100 units/mL 3mL vial (SSI)] 0 unit SQ ACHS ml Continue losartan 25 mg tablet 25 mg PO DAILY 90 Days #90 tab insulin glargine (U-100) 100 unit/mL (3 mL) subcutaneous pen 60 unit SQ DAILY liraglutide 0.6 mg/0.1 mL (18 mg/3 mL) subcutaneous pen injector 0.6 mg SQ DAILY omeprazole 20 mg tablet,delayed release 40 mg PO DAILY 30 Days #60 tab furosemide 40 mg tablet 40 mg PO DAILY 30 Days tab Cetirizine HCl 10 mg PO DAILY #30 tab estradiol 1 mg tablet 1 mg PO DAILY 30 Days #30 tab armodafinil 200 mg tablet 200 mg PO DAILY 30 Days #30 pen needle, diabetic 31 gauge x 10/20" See Dose Instructions .ROUTE .MEDSUPPLY #100 each Insulin Aspart [Novolog] 0 unit SQ DIRECTED Fenofibrate Nanocrystallized [Tricor] 48 mg PO DAILY Aspirin [Low Dose Aspirin EC] 81 mg PO DAILY buPROPion HCl [Wellbutrin SR 150mg Tablet] 150 mg PO DAILY Oxybutynin Chloride [Oxybutynin Chloride ER] 10 mg PO DAILY Metformin HCl [Glucophage] 1,000 mg PO BID Levothyroxine Sodium [Synthroid 150mcg (0.15mg) tablet] 150 mcg PO DAILY Metoprolol Tartrate [Lopressor 25mg tablet] 25 mg PO BID Clopidogrel Bisulfate [Plavix 75mg Tab] 75 mg PO DAILY 30 Days #30 tab Sertraline HCl [Zoloft 100mg tablet] 100 mg PO DAILY Pregabalin [Lyrica 150mg Cap] 150 mg PO BID
== END 2018-03-19 15:34 | disposition home or self-care (01) ==
LOC: ER 19:00 → 2ND 19:00
PROVIDERS: ADMIT Emergency Medicine; ATTEND Emergency Medicine